=== PATIENT | female | born 1955 | race Caucasian/White ===

== ENCOUNTER 2018-03-28 21:46 | Inpatient (IN) | payer MEDICARE, BC ==
--- NOTE | 2018-03-28 22:04 | ED Physician Chart ---
ED Chief Complaint/HPI - Patient Information Date Seen:: 03/28/18 Time Seen:: 21:50 Chief Complaint:: altered mental status History of Present Illness:: Patient has been at her current assisted living facility for 5 days. She is demonstrated confusion and weight loss of unknown amount. Patient is normally nonverbal and unable to walk. Allergies:: Allergies Allergy/AdvReac Type Severity Reaction Status Date / Time Penicillins [PCN] Allergy Verified 03/28/18 21:51 Vitals:: Vital Signs - 8 hr 03/28/18 21:52 Temp 97.1 F HR 66 RR 18 BP 118/66 O2 Sat % 97 Historian:: Other (care provider) Review:: Nurse's Note Reviewed ED Review of Systems - Review of Systems General/Constitutional: No fever, Weight loss, No weakness, No diaphoresis, No edema, No loss of appetite Skin: No skin lesions, No rash, No bruising Head: No headache, No light-headedness Eyes: No loss of vision, No pain, No diplopia ENT: No earache, No nasal drainage, No sore throat, No tinnitus Neck: No neck pain, No swelling, No thyromegaly, No stiffness, No mass noted Cardio Vascular: No chest pain, No palpitations, No PND, No orthopnea, No edema Pulmonary: No SOB, No cough, No sputum, No wheezing GI: No nausea, No vomiting, No diarrhea, No pain, No melena, No hematochezia, No constipation, No hematemesis G/U: No dysuria, No frequency, No hematuria Musculoskeletal: No bone or joint pain, No back pain, No muscle pain Endocrine: No polyuria, No polydipsia Hematopoietic: No bruising, No lymphadenopathy Allergic/Immuno: No urticaria, No angioedema Neurological: No syncope, No focal symptoms, Weakness, No paresthesia, No headache, No seizure, No dizziness, Confusion, No vertigo Family Medical History - Family Member Mother History Unknown: Yes ED Physical Exam - Physical Examination General/Constitutional: Awake Other Gen/Cons comments:: Mildly chronically ill-appearing; nonverbal; yelling Head: Atraumatic Eyes: Lids, conjuctiva normal, PERRL Skin: Nl inspection, No rash, No skin lesions, No ecchymosis ENMT: External ears, nose nl, Lips, teeth, gums nl Neck: No nuchal rigidity Respiratory: Nl effort/Exclusion, Clear to Auscultation, No Wheeze/Rhonchi/Rales Cardio Vascular: RRR, No murmur, gallop, rubs GI: No tenderness/rebounding/guarding : No CVA tenderness Extremities: No tenderness or effusion Neuro/Psych: No focal deficits Misc: No paraspinal tenderness ED Labs/Radiology/EKG Results - Lab Results Results: Laboratory Results - last 24 hr 03/28/18 03/28/18 22:00 22:00 WBC 8.0 RBC 4.85 Hgb 14.9 Hct 43.7 MCV 90.1 MCH 30.6 MCHC Differential 34.0 RDW 12.6 Plt Count 262 MPV 8.5 Neutrophils % 59.5 Lymphocytes % 30.7 Monocytes % 6.3 Eosinophils % 2.6 Basophils % 0.9 Sodium 138 Potassium 4.3 Chloride 105 Carbon Dioxide 25.4 Anion Gap 11.9 BUN 16 Creatinine 0.7 Est GFR ( Amer) > 60.0 Est GFR (Non-Af Amer) > 60.0 BUN/Creatinine Ratio 22.9 Glucose 89 Calcium 9.2 Total Bilirubin 0.6 AST 20 ALT 31 Alkaline Phosphatase 68 Total Protein 6.4 Albumin 3.5 L Globulin 2.9 Albumin/Globulin Ratio 1.2 ED Septic Shock - . Is Septic Shock (SBP<90, OR Lactate>4 mmol\L) present?: No - <6hrs of presentation: Vital Signs: Vital Signs - 8 hr 03/28/18 21:52 Temp 97.1 F HR 66 RR 18 BP 118/66 O2 Sat % 97 ED Reassessment (Disposition) - Reassessment Reassessment Condition:: Improved - Diagnosis Diagnosis:: Alzheimer's disease; agitation; altered mental status - Patient Disposition Admitted to:: Med/Surg Admitting Medical Physician:: Airam Del Angel Condition at Disposition:: Stable, Improved
[2018-03-28 22:18] LABS: % BASOPHILS 0.9 % (0.0-2.0); % EOSINOPHILS 2.6 % (0.0-5.0); % LYMPHOCYTES 30.7 % (20.0-50.0); % MONOCYTES 6.3 % (2.0-10.0); % NEUTROPHILS 59.5 % (40.0-80.0); BASOPHILE ABSOLUTE 0.1 Th/cumm (0-0.2); EOSINOPHILE ABSOLUTE 0.2 Th/cmm (0.1-0.4); HEMATOCRIT 43.7 % (41.0-60); HEMOGLOBIN 14.9 gm/dL (12-16); LYMPHOCYTE ABSOLUTE 2.5 Th/cmm (1.5-3.0); MEAN CELL VOLUME 90.1 fl (81-100); MEAN CORPUSCULAR HEMOGLOBIN 30.6 pg (27.0-31.0); MEAN PLATELET VOLUME 8.5 fl; MONOCYTE ABSOLUTE 0.5 Th/cmm (0.3-1.0); NEUTROPHILE ABSOLUTE 4.7 Th/cmm (1.8-8.0); PLATELET COUNT 262 Th/cmm (150-400); RED BLOOD COUNT 4.85 Mil/cmm (3.80-5.10); RED CELL DISTRIBUTION WIDTH 12.6 % (11.5-20.0)
[2018-03-28 22:44] LABS: ALB/GLOB RATIO 1.2 (1.0-1.8); ALBUMIN 3.5 gm/dL (3.7-5.3); ALKALINE PHOSPHATASE 68 U/L (34-104); ANION GAP 11.9 (7.0-16.0); BILIRUBIN,TOTAL 0.6 mg/dL (0.3-1.0); BUN - UREA NITROGEN 16 mg/dL (7-25); CALCIUM SERUM 9.2 mg/dL (8.6-10.3); CARBON DIOXIDE 25.4 mEq/L (21.0-31.0); CHLORIDE 105 mEq/L (98-107); CREATININE - SERUM 0.7 mg/dL (0.6-1.2); GFR AFRICAN-AMERICAN > 60.0 ml/min (>90); GFR NON AFRICAN-AMERICAN > 60.0 ml/min; GLUCOSE 89 mg/dL (70-105); POTASSIUM SERUM 4.3 mEq/L (3.5-5.1); SGOT 20 U/L (13-39); SGPT/ALT 31 U/L (7-52); SODIUM SERUM 138 mEq/L (136-145); TOTAL PROTEIN,SERUM 6.4 gm/dL (6.0-8.3)
[2018-03-29] MEDS: D5-0.45NS 1,000 ML IV SCH ×2 (01:00→20:59)
[2018-03-29 11:52] LABS: % BASOPHILS 0.1 % (0.0-2.0); % LYMPHOCYTES 33.9 % (20.0-50.0); EOSINOPHILE ABSOLUTE 0.2 Th/cmm (0.1-0.4); MEAN CELL VOLUME 90.9 fl (81-100); MEAN CORPUSCULAR HEMOGLOBIN 30.7 pg (27.0-31.0); MEAN CORPUSCULAR HGB CONC 33.8 pg (28.0-36.0); MEAN PLATELET VOLUME 8.6 fl; MONOCYTE ABSOLUTE 0.5 Th/cmm (0.3-1.0); NEUTROPHILE ABSOLUTE 3.1 Th/cmm (1.8-8.0); PLATELET COUNT 226 Th/cmm (150-400); RED BLOOD COUNT 4.24 Mil/cmm (3.80-5.10); RED CELL DISTRIBUTION WIDTH 12.2 % (11.5-20.0)
[2018-03-29 11:54] LABS: ALB/GLOB RATIO 1.1 (1.0-1.8); ALBUMIN 3.3 gm/dL (3.7-5.3); ALKALINE PHOSPHATASE 58 U/L (34-104); ANION GAP 10.8 (7.0-16.0); BILIRUBIN,TOTAL 0.8 mg/dL (0.3-1.0); BUN - UREA NITROGEN 12 mg/dL (7-25); CALCIUM SERUM 8.4 mg/dL (8.6-10.3); CHLORIDE 104 mEq/L (98-107); CHOLESTEROL 168 mg/dL (<200); CREATININE - SERUM 0.7 mg/dL (0.6-1.2); GFR AFRICAN-AMERICAN > 60.0 ml/min (>90); GFR NON AFRICAN-AMERICAN > 60.0 ml/min; HDL -HIGH DENSITY LIPOPROTEIN 31 mg/dL (23-92); MAGNESIUM 2.3 mg/dL (1.9-2.7); POTASSIUM SERUM 3.8 mEq/L (3.5-5.1); SGOT 17 U/L (13-39); SGPT/ALT 25 U/L (7-52); SODIUM SERUM 135 mEq/L (136-145); TOTAL PROTEIN,SERUM 6.2 gm/dL (6.0-8.3); TRIGLYCERIDES 88 mg/dL (<150)
[2018-03-29 11:55] LABS: HEMATOCRIT 38.6 % (41.0-60); WHITE BLOOD COUNT 5.8 Th/cmm (4.8-10.8)
[2018-03-29 12:03] LABS: GLUCOSE 363 mg/dL (70-105)
[2018-03-29] MEDS: POLYETHYLENE GLYCOL 3350 17 GM PACK PO SCH (16:35)
--- NOTE | 2018-03-29 16:56 | History & Physical ---
ADMIT DATE: 03/29/2018 CHIEF COMPLAINT: Altered mental status. HISTORY OF PRESENT ILLNESS: A 62-year-old female who is a resident of an assisted living. The patient has been more confused. For this reason, the patient is admitted to the med-surg unit. PAST MEDICAL HISTORY: Degenerative psychosis. PAST SURGICAL HISTORY: Unknown. ALLERGIES: PENICILLIN. SOCIAL HISTORY: The patient is a resident of an assisted living. REVIEW OF SYSTEMS: Unable to obtain, the patient is nonverbal at this time. PHYSICAL EXAMINATION: GENERAL: Elderly female, in no apparent distress. VITAL SIGNS: Temperature 97.2, heart rate 50, blood pressure 116/64, respiratory rate 17, O2 98%. HEENT: Head; normocephalic and atraumatic. NECK: Supple. No mass. LUNGS: Clear bilaterally. HEART: Regular rate and rhythm. ABDOMEN: Soft, nontender. LABORATORY DATA: WBC 5.8, H and H 13.0/38.6 and platelet of 226. Sodium 135, potassium 3.8, chloride 104, BUN 12 and creatinine 0.7. ASSESSMENT: Altered mental status, Alzheimer disease and agitation. PLAN: We will admit the patient to the med/surg unit. We will keep the patient on IV fluids for hydration. We will get CT of the abdomen and pelvis and also a CT of the head without contrast. We will get GI consultation and Psych consult as well. Continue to follow this patient. JOB# [id number]
--- NOTE | 2018-03-29 17:41 | Consultation ---
DATE OF CONSULTATION: 03/29/2018 IDENTIFYING INFORMATION: The patient is a 62-year-old female. HISTORY OF PRESENT ILLNESS: The patient was admitted because of altered level of consciousness and I was asked to do a consult on her. The patient herself was a poor historian. She was yelling and screaming throughout trying talk to her. The patients in the room were complaining that she could not sleep. She ____ all night. The patient came from assisted living facility, has been there for 5 days. She has been confused. She has been losing weight. She is normally nonverbal and unable to walk, so basically the patient really cannot express herself, very agitated, hard to redirect. I am not sure if she understand what I am asking her. PAST PSYCHIATRIC HISTORY: Unobtainable. MEDICAL HISTORY: The patient with a history of Alzheimer and agitation. MEDICATIONS: The patient has been on lorazepam 1 mg every 6 hours as needed. ALLERGIES: SHE IS ALLERGIC TO PENICILLIN. FAMILY AND SOCIAL HISTORY: Unobtainable. She came from [facility]. MENTAL STATUS EXAMINATION: The patient is yelling and screaming, nonverbal, unable to participate in meaningful conversation, not sleeping, not eating. Unable to do a formal mental status exam on her because of her agitation, and her inability to talk, very hard to redirect. I am not sure if she even understand. She also diagnosed with dementia. Obviously, her long and short term memory is poor. Her insight and judgment is impaired. IMPRESSION: AXIS I: Depression, not otherwise specified; psychosis, not otherwise specified. MEDICAL DIAGNOSES: Deferred to the medical doctor. I would recommend to add Remeron as that may help her with sleep and agitation. Medication may need to be adjusted. The patient may need to go to [facility] when medically clear. Thank you very much for allowing me to participate in the care of this most interesting lady. [facility]# [id number]
--- NOTE | 2018-03-29 17:49 | Consultation ---
DATE OF CONSULTATION: 03/29/2018 INPATIENT GASTROINTESTINAL CONSULTATION REFERRING PHYSICIAN: Dr. Del Agnel. REASON FOR CONSULTATION: Weight loss. HISTORY OF PRESENT ILLNESS: This is a 62-year-old female from a skilled facility, who was brought into the hospital with altered mental status. The patient seems somewhat confused and is not a good historian. We are asked to see the patient for alleged weight loss of an unknown amount. PAST MEDICAL HISTORY: Alzheimer's dementia. PAST SURGICAL HISTORY: Unknown to abdomen. FAMILY HISTORY: Noncontributory. SOCIAL HISTORY: Resident of skilled facility. ALLERGIES: PENICILLIN. CURRENT MEDICATIONS: Ativan and IV fluids. REVIEW OF SYSTEMS: Unobtainable. PHYSICAL EXAMINATION: VITAL SIGNS: Temperature 96.8, breathing 18, pulse of 54, blood pressure 113/61, and satting 100%. GENERAL: In no apparent distress. EYES: Anicteric. Normal conjunctivae. HEENT: Normocephalic, atraumatic. Moist mucous membranes. NECK: Soft and supple. CHEST: Clear. No effort. CARDIOVASCULAR: Regular rate and rhythm. ABDOMEN: Soft, nontender, nondistended. SKIN: Warm, dry. EXTREMITIES: Reveal no cyanosis. PSYCHOLOGICAL: Awake. LABORATORY DATA: Show white count 8, hemoglobin 14.9, and platelets of 262. Creatinine 0.7, total bilirubin 0.6, AST 20, ALT 31, and alkaline phosphatase 68. IMPRESSION: This is a 62-year-old female admitted with altered mental status, could be underlying psychiatric disorder, for which I would recommend a primary and hospitalist, get Psychiatry to evaluate this patient and other workup as necessary, perhaps Neurology. The patient is not having any GI symptoms, specifically abdominal pain, GI bleeding, change in bowel habits at this point, although she is a poor historian. We are asked to see her for weight loss and is quite difficult to tell how much weight she has lost. A CT abdomen and pelvis can be an overview image of the abdomen. Further recommendations may require other specialists to evaluate. We will defer to hospitalist to make that decision. PLAN: 1. Check CT abdomen and pelvis. 2. Consider Psych and Neuro evaluation per hospitalist. 3. Continue supportive care. Thank you for allowing me to participate. Please call me if any questions. JOB# [id number]
--- NOTE | 2018-03-30 08:05 | GI Progress Note ---
Subjective - Review of Systems Subjective: NO EVENTS Objective - Results Result Diagrams: 03/29/18 11:26 03/29/18 11:26 Recent Labs: Laboratory Last Values WBC 5.8 Th/cmm (4.8-10.8) D 03/29/18 11:26 RBC 4.24 Mil/cmm (3.80-5.10) 03/29/18 11:26 Hgb 13.0 gm/dL (12-16) 03/29/18 11:26 Hct 38.6 % (41.0-60) L D 03/29/18 11:26 MCV 90.9 fl (81-100) 03/29/18 11:26 MCH 30.7 pg (27.0-31.0) 03/29/18 11:26 MCHC Differential 33.8 pg (28.0-36.0) 03/29/18 11:26 RDW 12.2 % (11.5-20.0) 03/29/18 11:26 Plt Count 226 Th/cmm (150-400) 03/29/18 11:26 MPV 8.6 fl 03/29/18 11:26 Neutrophils % 54.0 % (40.0-80.0) 03/29/18 11:26 Lymphocytes % 33.9 % (20.0-50.0) 03/29/18 11:26 Monocytes % 9.0 % (2.0-10.0) 03/29/18 11:26 Eosinophils % 3.0 % (0.0-5.0) 03/29/18 11:26 Basophils % 0.1 % (0.0-2.0) 03/29/18 11:26 Sodium 135 mEq/L (136-145) L 03/29/18 11:26 Potassium 3.8 mEq/L (3.5-5.1) 03/29/18 11:26 Chloride 104 mEq/L (98-107) 03/29/18 11:26 Carbon Dioxide 24.0 mEq/L (21.0-31.0) 03/29/18 11:26 Anion Gap 10.8 (7.0-16.0) 03/29/18 11:26 BUN 12 mg/dL (7-25) 03/29/18 11:26 Creatinine 0.7 mg/dL (0.6-1.2) 03/29/18 11:26 Est GFR ( Amer) > 60.0 ml/min (>90) 03/29/18 11:26 Est GFR (Non-Af Amer) > 60.0 ml/min 03/29/18 11:26 BUN/Creatinine Ratio 17.1 03/29/18 11:26 Glucose 363 mg/dL (70-105) H D 03/29/18 11:26 Calcium 8.4 mg/dL (8.6-10.3) L 03/29/18 11:26 Magnesium 2.3 mg/dL (1.9-2.7) 03/29/18 11:26 Total Bilirubin 0.8 mg/dL (0.3-1.0) 03/29/18 11:26 AST 17 U/L (13-39) 03/29/18 11:26 ALT 25 U/L (7-52) 03/29/18 11:26 Alkaline Phosphatase 58 U/L (34-104) 03/29/18 11:26 Total Protein 6.2 gm/dL (6.0-8.3) 03/29/18 11:26 Albumin 3.3 gm/dL (3.7-5.3) L 03/29/18 11:26 Globulin 2.9 gm/dL 03/29/18 11:26 Albumin/Globulin Ratio 1.1 (1.0-1.8) 03/29/18 11:26 Triglycerides 88 mg/dL (<150) 03/29/18 11:26 Cholesterol 168 mg/dL (<200) 03/29/18 11:26 LDL Cholesterol Direct 120 mg/dL (75-193) 03/29/18 11:26 HDL Cholesterol 31 mg/dL (23-92) 03/29/18 11:26 - Physical Exam Vitals and I&O: Vital Signs Temp 95.1 F 03/30/18 07:59 Pulse 52 03/30/18 07:59 Resp 17 03/30/18 07:59 BP 133/65 03/30/18 07:59 Pulse Ox 100 03/30/18 07:59 Intake & Output 03/29/18 03/30/18 03/30/18 18:59 06:59 18:59 Intake Total 500 999.167 Output Total 2 Balance 498 999.167 Weight (lbs) 48.988 kg 49.895 kg Intake: Intake, IV Amount 999.167 D5-0.45NS 1,000 ml @ 50 999.167 mls/hr IV .Q20H [facility] Rx#: [id number] Oral 500 Output: Urine 2 Other: # Bowel Movements 0 Weight Source Bedscale Bedscale Active Medications: Current Medications Diazepam (Valium) 5 mg PO BID [facility]; Protocol Stop: 05/28/18 16:59 Dextrose/Sodium Chloride (D5-0.45ns) 1,000 mls @ 50 mls/hr IV .Q20H [facility] Stop: 05/28/18 00:00 Last Admin: 03/29/18 20:59 Dose: 50 mls/hr Lorazepam (Ativan) 1 mg IVP Q6HR PRN; Protocol PRN Reason: Agitation Stop: 05/28/18 00:00 Last Admin: 03/29/18 20:52 Dose: 1 mg Mirtazapine (Remeron) 7.5 mg PO HS [facility]; Protocol Stop: 05/28/18 12:15 Last Admin: 03/29/18 13:56 Dose: 7.5 mg Ondansetron HCl (Zofran Odt) 4 mg PO Q6HR PRN PRN Reason: Nausea / Vomiting Stop: 05/28/18 16:04 Polyethylene Glycol (Miralax) 17 gm PO BID [facility] Stop: 05/28/18 16:59 Last Admin: 03/29/18 16:35 Dose: 17 gm Quetiapine Fumarate (Seroquel) 25 mg PO Q6H PRN; Protocol PRN Reason: Agitation Stop: 05/28/18 16:04 Quetiapine Fumarate (Seroquel) 50 mg PO BID [facility]; Protocol Stop: 05/28/18 16:59 Assessment/Plan - Assessment Assessment: 62 YO FEMALE WITH ALLEGED WEIGHT LOSS UNCLEAR ETIOLOGY OR AMOUNT 1.AWAIT CT SCAN 2.CONT SUPP CARE 3.DEFER OTHER MANAGEMENT TO HOSPITALIST
[2018-03-30] MEDS: POLYETHYLENE GLYCOL 3350 17 GM PACK PO SCH ×2 (09:25→17:01)
--- NOTE | 2018-03-30 10:09 | Diagnostic Imaging Report ---
Head CT without intravenous contrast Indication: Altered level of consciousness Comparison: None Technique: Axial images were obtained from the vertex to the skull base without IV contrast. Coronal reconstructions were made. Total DLP: 1219, [id number] FINDINGS: Exam is severely limited as patient was uncooperative despite multiple attempts. No gross hemorrhage is identified. Atrophy is noted. Diffuse White matter disease is noted. The ventricles and basal cisterns are patent. No mass effect or midline shift. Assessment for skull fracture was limited on this examination. IMPRESSION: Severely limited examination as patient was uncooperative despite multiple attempts. No gross hemorrhage identified based on images provided. If necessary short-term repeat exam may be obtained. Diffuse supratentorial white matter disease which is nonspecific and may be due to chronic microvessel ischemia. Atrophy.
--- NOTE | 2018-03-30 10:13 | Diagnostic Imaging Report ---
CT abdomen and pelvis without intravenous contrast Indication: Abdominal pain, weight loss Comparison: None, Technique: Axial images were obtained from the lung bases to the bilateral proximal femurs without IV contrast. Coronal reconstructions were made. total DLP: 812, [id number] FINDINGS: Exam is markedly limited due to motion as patient was uncooperative. Hypoventilatory and atelectatic lung changes are noted. Assessment of the solid organs is limited due to lack of IV contrast. No evidence of focal hepatic or splenic lesions. The patient is status post cholecystectomy. Limited assessment of the pancreas demonstrates no obvious focal lesions. No focal adrenal lesions. No evidence of hydronephrosis or focal renal lesions. There is marked distal fecal impaction and with mass effect upon the uterus and urinary bladder. Additional copious stool and generalized gas-filled loops of bowel are noted. Appendix is not well-visualized. No free fluid or free air. Limited assessment of osseous structures demonstrates degenerative changes. Mild atherosclerosis is noted. No obvious mesenteric or retroperitoneal or lymphadenopathy. IMPRESSION: Markedly limited examination as patient was uncooperative. Exam is also limited due to lack of IV and oral contrast. Marked distal fecal impaction. Copious stool and gas-filled loops of bowel are also noted which may be due to constipation and mild ileus. No obvious mesenteric or retroperitoneal lymphadenopathy. However, assessment was limited on this examination Evidence of prior cholecystectomy. Mild atherosclerosis.
[2018-03-30 14:59] LABS: URINE SOURCE CATH
[2018-03-30 15:19] LABS: URINE BILIRUBIN NEGATIVE (NEGATIVE); URINE BLOOD NEGATIVE (NEGATIVE); URINE CLARITY CLEAR (CLEAR); URINE COLOR YELLOW; URINE GLUCOSE (UA) NEGATIVE (NEGATIVE); URINE KETONE NEGATIVE (NEGATIVE); URINE LEUKOCYTE ESTERASE NEGATIVE (NEGATIVE); URINE MICROSCOPIC INDICATED? YES; URINE NITRATE NEGATIVE (NEGATIVE); URINE PROTEIN NEGATIVE (NEGATIVE); URINE UROBILINOGEN 0.2 E.U./dL (0.2 - 1.0)
[2018-03-30 15:21] LABS: URINE BACTERIA OCCASIONAL /hpf (NONE SEEN); URINE EPITHELIAL CELLS FEW /lpf (FEW); URINE RBC 0-2 /hpf (0-5); URINE WBC 0-2 /hpf (0-5)
[2018-03-30] MEDS: D5-0.45NS 1,000 ML IV SCH (17:06)
--- NOTE | 2018-03-30 21:15 | Progress Notes ---
DATE: 03/30/2018 SUBJECTIVE: The patient was seen in her room. The patient is asleep, but easily arousable. The patient is a poor historian due to medical condition, otherwise the patient appears to be in no acute distress. OBJECTIVE: VITAL SIGNS: Temperature 97.1, heart rate of 52, respirations of 18, blood pressure 138/65, 100% on room air. HEENT: Head is atraumatic and normocephalic. Eyes: Bilateral conjunctivae are clear. Bilateral pupils are equally round and reactive. NECK: Supple. No JVD. CARDIOVASCULAR: S1 and S2 without murmur. PULMONARY: Clear to auscultation. GASTROINTESTINAL: Soft and nontender without guarding. Positive bowel sounds. MUSCULOSKELETAL: No clubbing. No cyanosis noted. ASSESSMENT: 1. Dementia. 2. Osteoarthritis. PLAN: We will keep the patient inpatient to Med/Surg unit. We are still pending for consults to see the patient. Treatment plans were discussed with the patient's nurse. Treatment plans were discussed with Dr. Del Angel. JOB# [id number]
--- NOTE | 2018-03-31 08:12 | GI Progress Note ---
Subjective - Review of Systems Subjective: NO EVENTS EATING BREAKFAST Objective - Results Result Diagrams: 03/29/18 11:26 03/29/18 11:26 Recent Labs: Laboratory Last Values WBC 5.8 Th/cmm (4.8-10.8) D 03/29/18 11:26 RBC 4.24 Mil/cmm (3.80-5.10) 03/29/18 11:26 Hgb 13.0 gm/dL (12-16) 03/29/18 11:26 Hct 38.6 % (41.0-60) L D 03/29/18 11:26 MCV 90.9 fl (81-100) 03/29/18 11:26 MCH 30.7 pg (27.0-31.0) 03/29/18 11:26 MCHC Differential 33.8 pg (28.0-36.0) 03/29/18 11:26 RDW 12.2 % (11.5-20.0) 03/29/18 11:26 Plt Count 226 Th/cmm (150-400) 03/29/18 11:26 MPV 8.6 fl 03/29/18 11:26 Neutrophils % 54.0 % (40.0-80.0) 03/29/18 11:26 Lymphocytes % 33.9 % (20.0-50.0) 03/29/18 11:26 Monocytes % 9.0 % (2.0-10.0) 03/29/18 11:26 Eosinophils % 3.0 % (0.0-5.0) 03/29/18 11:26 Basophils % 0.1 % (0.0-2.0) 03/29/18 11:26 Sodium 135 mEq/L (136-145) L 03/29/18 11:26 Potassium 3.8 mEq/L (3.5-5.1) 03/29/18 11:26 Chloride 104 mEq/L (98-107) 03/29/18 11:26 Carbon Dioxide 24.0 mEq/L (21.0-31.0) 03/29/18 11:26 Anion Gap 10.8 (7.0-16.0) 03/29/18 11:26 BUN 12 mg/dL (7-25) 03/29/18 11:26 Creatinine 0.7 mg/dL (0.6-1.2) 03/29/18 11:26 Est GFR ( Amer) > 60.0 ml/min (>90) 03/29/18 11:26 Est GFR (Non-Af Amer) > 60.0 ml/min 03/29/18 11:26 BUN/Creatinine Ratio 17.1 03/29/18 11:26 Glucose 363 mg/dL (70-105) H D 03/29/18 11:26 Calcium 8.4 mg/dL (8.6-10.3) L 03/29/18 11:26 Magnesium 2.3 mg/dL (1.9-2.7) 03/29/18 11:26 Total Bilirubin 0.8 mg/dL (0.3-1.0) 03/29/18 11:26 AST 17 U/L (13-39) 03/29/18 11:26 ALT 25 U/L (7-52) 03/29/18 11:26 Alkaline Phosphatase 58 U/L (34-104) 03/29/18 11:26 Total Protein 6.2 gm/dL (6.0-8.3) 03/29/18 11:26 Albumin 3.3 gm/dL (3.7-5.3) L 03/29/18 11:26 Globulin 2.9 gm/dL 03/29/18 11:26 Albumin/Globulin Ratio 1.1 (1.0-1.8) 03/29/18 11:26 Triglycerides 88 mg/dL (<150) 03/29/18 11:26 Cholesterol 168 mg/dL (<200) 03/29/18 11:26 LDL Cholesterol Direct 120 mg/dL (75-193) 03/29/18 11:26 HDL Cholesterol 31 mg/dL (23-92) 03/29/18 11:26 Urine Source CATH 03/30/18 10:05 Urine Color YELLOW 03/30/18 10:05 Urine Clarity CLEAR (CLEAR) 03/30/18 10:05 Urine pH 6.0 (4.6 - 8.0) 03/30/18 10:05 Ur Specific Simon 1.015 (1.005-1.030) 03/30/18 10:05 Urine Protein NEGATIVE mg/dL (NEGATIVE) 03/30/18 10:05 Urine Glucose (UA) NEGATIVE mg/dL (NEGATIVE) 03/30/18 10:05 Urine Ketones NEGATIVE mg/dL (NEGATIVE) 03/30/18 10:05 Urine Blood NEGATIVE (NEGATIVE) 03/30/18 10:05 Urine Nitrate NEGATIVE (NEGATIVE) 03/30/18 10:05 Urine Bilirubin NEGATIVE (NEGATIVE) 03/30/18 10:05 Urine Urobilinogen 0.2 E.U./dL (0.2 - 1.0) 03/30/18 10:05 Ur Leukocyte Esterase NEGATIVE (NEGATIVE) 03/30/18 10:05 Urine RBC 0-2 /hpf (0-5) 03/30/18 10:05 Urine WBC 0-2 /hpf (0-5) 03/30/18 10:05 Ur Epithelial Cells FEW /lpf (FEW) 03/30/18 10:05 Urine Bacteria OCCASIONAL /hpf (NONE SEEN) 03/30/18 10:05 - Physical Exam Vitals and I&O: Vital Signs Temp 97.6 F 03/31/18 04:00 Pulse 61 03/31/18 04:00 Resp 20 03/31/18 04:00 BP 112/68 03/31/18 04:00 Pulse Ox 98 03/31/18 04:00 Intake & Output 03/30/18 03/31/18 03/31/18 18:59 06:59 18:59 Intake Total 1900 120 Output Total 3 Balance 1900 117 Weight (lbs) 49.895 kg 49.016 kg Intake: Intake, IV Amount 1000 D5-0.45NS 1,000 ml @ 50 1000 mls/hr IV .Q20H [facility] Rx#: [id number] Oral 900 120 Output: Urine/Stool Mix 3 Other: # Voids 3 # Bowel Movements 0 Weight Source Bedscale Bedscale Active Medications: Current Medications Diazepam (Valium) 5 mg PO BID [facility]; Protocol Stop: 05/28/18 16:59 Last Admin: 03/31/18 07:53 Dose: 5 mg Dextrose/Sodium Chloride (D5-0.45ns) 1,000 mls @ 50 mls/hr IV .Q20H [facility] Stop: 05/28/18 00:00 Last Admin: 03/30/18 17:06 Dose: 50 mls/hr Lorazepam (Ativan) 1 mg IVP Q6HR PRN; Protocol PRN Reason: Agitation Stop: 05/28/18 00:00 Last Admin: 03/31/18 07:53 Dose: 1 mg Mirtazapine (Remeron) 7.5 mg PO HS [facility]; Protocol Stop: 05/28/18 12:15 Last Admin: 03/30/18 21:27 Dose: 7.5 mg Ondansetron HCl (Zofran Odt) 4 mg PO Q6HR PRN PRN Reason: Nausea / Vomiting Stop: 05/28/18 16:04 Polyethylene Glycol (Miralax) 17 gm PO BID [facility] Stop: 05/28/18 16:59 Last Admin: 03/30/18 17:01 Dose: 17 gm Quetiapine Fumarate (Seroquel) 25 mg PO Q6H PRN; Protocol PRN Reason: Agitation Stop: 05/28/18 16:04 Quetiapine Fumarate (Seroquel) 50 mg PO BID [facility]; Protocol Stop: 05/28/18 16:59 Last Admin: 03/31/18 07:53 Dose: 50 mg Assessment/Plan - Assessment Assessment: 62 YO FEMALE WITH ALLEGED WEIGHT LOSS UNCLEAR ETIOLOGY OR AMOUNT LFTS NORMAL CT ABD PELVIS SHOWED CONSTIPATION AND PATRICIO CHANGES 1.LAXATIVES 2.CONT SUPP CARE 3.DEFER OTHER MANAGEMENT TO HOSPITALIST
[2018-03-31] MEDS ORDERED: Magnesium Hydroxide (MOM) 30 mL UDC PO PRN (08:13)
--- NOTE | 2018-03-31 11:28 | General Progress Note ---
Subjective - Review of Systems Events since last encounter: in no distres doing well Objective - Results Result Diagrams: 03/29/18 11:26 03/29/18 11:26 Recent Labs: Laboratory Last Values WBC 5.8 Th/cmm (4.8-10.8) D 03/29/18 11:26 RBC 4.24 Mil/cmm (3.80-5.10) 03/29/18 11:26 Hgb 13.0 gm/dL (12-16) 03/29/18 11:26 Hct 38.6 % (41.0-60) L D 03/29/18 11:26 MCV 90.9 fl (81-100) 03/29/18 11:26 MCH 30.7 pg (27.0-31.0) 03/29/18 11:26 MCHC Differential 33.8 pg (28.0-36.0) 03/29/18 11:26 RDW 12.2 % (11.5-20.0) 03/29/18 11:26 Plt Count 226 Th/cmm (150-400) 03/29/18 11:26 MPV 8.6 fl 03/29/18 11:26 Neutrophils % 54.0 % (40.0-80.0) 03/29/18 11:26 Lymphocytes % 33.9 % (20.0-50.0) 03/29/18 11:26 Monocytes % 9.0 % (2.0-10.0) 03/29/18 11:26 Eosinophils % 3.0 % (0.0-5.0) 03/29/18 11:26 Basophils % 0.1 % (0.0-2.0) 03/29/18 11:26 Sodium 135 mEq/L (136-145) L 03/29/18 11:26 Potassium 3.8 mEq/L (3.5-5.1) 03/29/18 11:26 Chloride 104 mEq/L (98-107) 03/29/18 11:26 Carbon Dioxide 24.0 mEq/L (21.0-31.0) 03/29/18 11:26 Anion Gap 10.8 (7.0-16.0) 03/29/18 11:26 BUN 12 mg/dL (7-25) 03/29/18 11:26 Creatinine 0.7 mg/dL (0.6-1.2) 03/29/18 11:26 Est GFR ( Amer) > 60.0 ml/min (>90) 03/29/18 11:26 Est GFR (Non-Af Amer) > 60.0 ml/min 03/29/18 11:26 BUN/Creatinine Ratio 17.1 03/29/18 11:26 Glucose 363 mg/dL (70-105) H D 03/29/18 11:26 Calcium 8.4 mg/dL (8.6-10.3) L 03/29/18 11:26 Magnesium 2.3 mg/dL (1.9-2.7) 03/29/18 11:26 Total Bilirubin 0.8 mg/dL (0.3-1.0) 03/29/18 11:26 AST 17 U/L (13-39) 03/29/18 11:26 ALT 25 U/L (7-52) 03/29/18 11:26 Alkaline Phosphatase 58 U/L (34-104) 03/29/18 11:26 Total Protein 6.2 gm/dL (6.0-8.3) 03/29/18 11:26 Albumin 3.3 gm/dL (3.7-5.3) L 03/29/18 11:26 Globulin 2.9 gm/dL 03/29/18 11:26 Albumin/Globulin Ratio 1.1 (1.0-1.8) 03/29/18 11:26 Triglycerides 88 mg/dL (<150) 03/29/18 11:26 Cholesterol 168 mg/dL (<200) 03/29/18 11:26 LDL Cholesterol Direct 120 mg/dL (75-193) 03/29/18 11:26 HDL Cholesterol 31 mg/dL (23-92) 03/29/18 11:26 Urine Source CATH 03/30/18 10:05 Urine Color YELLOW 03/30/18 10:05 Urine Clarity CLEAR (CLEAR) 03/30/18 10:05 Urine pH 6.0 (4.6 - 8.0) 03/30/18 10:05 Ur Specific [place] 1.015 (1.005-1.030) 03/30/18 10:05 Urine Protein NEGATIVE mg/dL (NEGATIVE) 03/30/18 10:05 Urine Glucose (UA) NEGATIVE mg/dL (NEGATIVE) 03/30/18 10:05 Urine Ketones NEGATIVE mg/dL (NEGATIVE) 03/30/18 10:05 Urine Blood NEGATIVE (NEGATIVE) 03/30/18 10:05 Urine Nitrate NEGATIVE (NEGATIVE) 03/30/18 10:05 Urine Bilirubin NEGATIVE (NEGATIVE) 03/30/18 10:05 Urine Urobilinogen 0.2 E.U./dL (0.2 - 1.0) 03/30/18 10:05 Ur Leukocyte Esterase NEGATIVE (NEGATIVE) 03/30/18 10:05 Urine RBC 0-2 /hpf (0-5) 03/30/18 10:05 Urine WBC 0-2 /hpf (0-5) 03/30/18 10:05 Ur Epithelial Cells FEW /lpf (FEW) 03/30/18 10:05 Urine Bacteria OCCASIONAL /hpf (NONE SEEN) 03/30/18 10:05 - Physical Exam Vitals and I&O: Vital Signs Temp 97.2 F 03/31/18 09:01 Pulse 76 03/31/18 09:01 Resp 18 03/31/18 09:01 BP 90/51 03/31/18 09:01 Pulse Ox 99 03/31/18 09:01 Intake & Output 03/30/18 03/31/18 03/31/18 18:59 06:59 18:59 Intake Total 1900 120 Output Total 3 Balance 1900 117 Weight (lbs) 49.895 kg 49.016 kg Intake: Intake, IV Amount 1000 D5-0.45NS 1,000 ml @ 50 1000 mls/hr IV .Q20H [facility] Rx#: [id number] Oral 900 120 Output: Urine/Stool Mix 3 Other: # Voids 3 # Bowel Movements 0 Weight Source Bedscale Bedscale Active Medications: Current Medications Diazepam (Valium) 5 mg PO TID [facility]; Protocol Stop: 05/30/18 13:59 Docusate Sodium (Colace) 100 mg PO BID [facility] Stop: 05/30/18 08:59 Dextrose/Sodium Chloride (D5-0.45ns) 1,000 mls @ 50 mls/hr IV .Q20H [facility] Stop: 05/28/18 00:00 Last Admin: 03/30/18 17:06 Dose: 50 mls/hr Magnesium Hydroxide (Milk Of Magnesia) 30 ml PO HS PRN PRN Reason: Constipation Stop: 05/30/18 08:12 Mirtazapine (Remeron) 7.5 mg PO HS [facility]; Protocol Stop: 05/28/18 12:15 Last Admin: 03/30/18 21:27 Dose: 7.5 mg Ondansetron HCl (Zofran Odt) 4 mg PO Q6HR PRN PRN Reason: Nausea / Vomiting Stop: 05/28/18 16:04 Polyethylene Glycol (Miralax) 17 gm PO BID [facility] Stop: 05/28/18 16:59 Last Admin: 03/30/18 17:01 Dose: 17 gm Quetiapine Fumarate (Seroquel) 25 mg PO Q6H PRN; Protocol PRN Reason: Agitation Stop: 05/28/18 16:04 Quetiapine Fumarate (Seroquel) 50 mg PO BID [facility]; Protocol Stop: 05/28/18 16:59 Last Admin: 03/31/18 08:25 Dose: 50 mg
[2018-03-31] MEDS: POLYETHYLENE GLYCOL 3350 17 GM PACK PO SCH ×2 (11:44→17:07)
[2018-03-31] MEDS: D5-0.45NS 1,000 ML IV SCH (17:08)
[2018-04-01] MEDS: POLYETHYLENE GLYCOL 3350 17 GM PACK PO SCH ×2 (08:10→17:11)
[2018-04-01] MEDS: D5-0.45NS 1,000 ML IV SCH (13:24)
--- NOTE | 2018-04-01 15:30 | General Progress Note ---
Subjective - Review of Systems Events since last encounter: doing well in no acute distress Objective - Results Result Diagrams: 03/29/18 11:26 03/29/18 11:26 Recent Labs: Laboratory Last Values WBC 5.8 Th/cmm (4.8-10.8) D 03/29/18 11:26 RBC 4.24 Mil/cmm (3.80-5.10) 03/29/18 11:26 Hgb 13.0 gm/dL (12-16) 03/29/18 11:26 Hct 38.6 % (41.0-60) L D 03/29/18 11:26 MCV 90.9 fl (81-100) 03/29/18 11:26 MCH 30.7 pg (27.0-31.0) 03/29/18 11:26 MCHC Differential 33.8 pg (28.0-36.0) 03/29/18 11:26 RDW 12.2 % (11.5-20.0) 03/29/18 11:26 Plt Count 226 Th/cmm (150-400) 03/29/18 11:26 MPV 8.6 fl 03/29/18 11:26 Neutrophils % 54.0 % (40.0-80.0) 03/29/18 11:26 Lymphocytes % 33.9 % (20.0-50.0) 03/29/18 11:26 Monocytes % 9.0 % (2.0-10.0) 03/29/18 11:26 Eosinophils % 3.0 % (0.0-5.0) 03/29/18 11:26 Basophils % 0.1 % (0.0-2.0) 03/29/18 11:26 Sodium 135 mEq/L (136-145) L 03/29/18 11:26 Potassium 3.8 mEq/L (3.5-5.1) 03/29/18 11:26 Chloride 104 mEq/L (98-107) 03/29/18 11:26 Carbon Dioxide 24.0 mEq/L (21.0-31.0) 03/29/18 11:26 Anion Gap 10.8 (7.0-16.0) 03/29/18 11:26 BUN 12 mg/dL (7-25) 03/29/18 11:26 Creatinine 0.7 mg/dL (0.6-1.2) 03/29/18 11:26 Est GFR ( Amer) > 60.0 ml/min (>90) 03/29/18 11:26 Est GFR (Non-Af Amer) > 60.0 ml/min 03/29/18 11:26 BUN/Creatinine Ratio 17.1 03/29/18 11:26 Glucose 363 mg/dL (70-105) H D 03/29/18 11:26 POC Glucose 98 MG/DL (70 - 105) 04/01/18 07:56 Calcium 8.4 mg/dL (8.6-10.3) L 03/29/18 11:26 Magnesium 2.3 mg/dL (1.9-2.7) 03/29/18 11:26 Total Bilirubin 0.8 mg/dL (0.3-1.0) 03/29/18 11:26 AST 17 U/L (13-39) 03/29/18 11:26 ALT 25 U/L (7-52) 03/29/18 11:26 Alkaline Phosphatase 58 U/L (34-104) 03/29/18 11:26 Total Protein 6.2 gm/dL (6.0-8.3) 03/29/18 11:26 Albumin 3.3 gm/dL (3.7-5.3) L 03/29/18 11:26 Globulin 2.9 gm/dL 03/29/18 11:26 Albumin/Globulin Ratio 1.1 (1.0-1.8) 03/29/18 11:26 Triglycerides 88 mg/dL (<150) 03/29/18 11:26 Cholesterol 168 mg/dL (<200) 03/29/18 11:26 LDL Cholesterol Direct 120 mg/dL (75-193) 03/29/18 11:26 HDL Cholesterol 31 mg/dL (23-92) 03/29/18 11:26 Urine Source CATH 03/30/18 10:05 Urine Color YELLOW 03/30/18 10:05 Urine Clarity CLEAR (CLEAR) 03/30/18 10:05 Urine pH 6.0 (4.6 - 8.0) 03/30/18 10:05 Ur Specific [place] 1.015 (1.005-1.030) 03/30/18 10:05 Urine Protein NEGATIVE mg/dL (NEGATIVE) 03/30/18 10:05 Urine Glucose (UA) NEGATIVE mg/dL (NEGATIVE) 03/30/18 10:05 Urine Ketones NEGATIVE mg/dL (NEGATIVE) 03/30/18 10:05 Urine Blood NEGATIVE (NEGATIVE) 03/30/18 10:05 Urine Nitrate NEGATIVE (NEGATIVE) 03/30/18 10:05 Urine Bilirubin NEGATIVE (NEGATIVE) 03/30/18 10:05 Urine Urobilinogen 0.2 E.U./dL (0.2 - 1.0) 03/30/18 10:05 Ur Leukocyte Esterase NEGATIVE (NEGATIVE) 03/30/18 10:05 Urine RBC 0-2 /hpf (0-5) 03/30/18 10:05 Urine WBC 0-2 /hpf (0-5) 03/30/18 10:05 Ur Epithelial Cells FEW /lpf (FEW) 03/30/18 10:05 Urine Bacteria OCCASIONAL /hpf (NONE SEEN) 03/30/18 10:05 - Physical Exam Vitals and I&O: Vital Signs Temp 97.2 F 04/01/18 11:55 Pulse 78 04/01/18 11:55 Resp 18 04/01/18 11:55 BP 116/69 04/01/18 11:55 Pulse Ox 99 04/01/18 11:55 Intake & Output 03/31/18 04/01/18 04/01/18 18:59 06:59 18:59 Intake Total 1900 1000 Balance 1900 1000 Weight (lbs) 49.016 kg 48.988 kg Intake: Intake, IV Amount 1000 1000 D5-0.45NS 1,000 ml @ 50 1000 1000 mls/hr IV .Q20H [facility] Rx#: [id number] Oral 900 Other: # Voids 3 2 # Bowel Movements 0 Weight Source Bedscale Bedscale Active Medications: Current Medications Diazepam (Valium) 5 mg PO TID [facility]; Protocol Stop: 05/30/18 13:59 Last Admin: 04/01/18 13:32 Dose: 5 mg Docusate Sodium (Colace) 100 mg PO BID [facility] Stop: 05/30/18 08:59 Last Admin: 04/01/18 08:10 Dose: 100 mg Dextrose/Sodium Chloride (D5-0.45ns) 1,000 mls @ 50 mls/hr IV .Q20H [facility] Stop: 05/28/18 00:00 Last Admin: 04/01/18 13:24 Dose: 50 mls/hr Magnesium Hydroxide (Milk Of Magnesia) 30 ml PO HS PRN PRN Reason: Constipation Stop: 05/30/18 08:12 Mirtazapine (Remeron) 7.5 mg PO HS [facility]; Protocol Stop: 05/28/18 12:15 Last Admin: 03/31/18 22:44 Dose: Not Given Ondansetron HCl (Zofran Odt) 4 mg PO Q6HR PRN PRN Reason: Nausea / Vomiting Stop: 05/28/18 16:04 Polyethylene Glycol (Miralax) 17 gm PO BID [facility] Stop: 05/28/18 16:59 Last Admin: 04/01/18 08:10 Dose: 17 gm Quetiapine Fumarate (Seroquel) 25 mg PO Q6H PRN; Protocol PRN Reason: Agitation Stop: 05/28/18 16:04 Quetiapine Fumarate (Seroquel) 50 mg PO BID [facility]; Protocol Stop: 05/28/18 16:59 Last Admin: 04/01/18 08:10 Dose: 50 mg
--- NOTE | 2018-04-01 16:22 | GI Progress Note ---
Subjective - Review of Systems Subjective: NO EVENTS EATING AND HAVING BM PER STAFF Objective - Results Result Diagrams: 03/29/18 11:26 03/29/18 11:26 Recent Labs: Laboratory Last Values WBC 5.8 Th/cmm (4.8-10.8) D 03/29/18 11:26 RBC 4.24 Mil/cmm (3.80-5.10) 03/29/18 11:26 Hgb 13.0 gm/dL (12-16) 03/29/18 11:26 Hct 38.6 % (41.0-60) L D 03/29/18 11:26 MCV 90.9 fl (81-100) 03/29/18 11:26 MCH 30.7 pg (27.0-31.0) 03/29/18 11:26 MCHC Differential 33.8 pg (28.0-36.0) 03/29/18 11:26 RDW 12.2 % (11.5-20.0) 03/29/18 11:26 Plt Count 226 Th/cmm (150-400) 03/29/18 11:26 MPV 8.6 fl 03/29/18 11:26 Neutrophils % 54.0 % (40.0-80.0) 03/29/18 11:26 Lymphocytes % 33.9 % (20.0-50.0) 03/29/18 11:26 Monocytes % 9.0 % (2.0-10.0) 03/29/18 11:26 Eosinophils % 3.0 % (0.0-5.0) 03/29/18 11:26 Basophils % 0.1 % (0.0-2.0) 03/29/18 11:26 Sodium 135 mEq/L (136-145) L 03/29/18 11:26 Potassium 3.8 mEq/L (3.5-5.1) 03/29/18 11:26 Chloride 104 mEq/L (98-107) 03/29/18 11:26 Carbon Dioxide 24.0 mEq/L (21.0-31.0) 03/29/18 11:26 Anion Gap 10.8 (7.0-16.0) 03/29/18 11:26 BUN 12 mg/dL (7-25) 03/29/18 11:26 Creatinine 0.7 mg/dL (0.6-1.2) 03/29/18 11:26 Est GFR ( Amer) > 60.0 ml/min (>90) 03/29/18 11:26 Est GFR (Non-Af Amer) > 60.0 ml/min 03/29/18 11:26 BUN/Creatinine Ratio 17.1 03/29/18 11:26 Glucose 363 mg/dL (70-105) H D 03/29/18 11:26 POC Glucose 98 MG/DL (70 - 105) 04/01/18 07:56 Calcium 8.4 mg/dL (8.6-10.3) L 03/29/18 11:26 Magnesium 2.3 mg/dL (1.9-2.7) 03/29/18 11:26 Total Bilirubin 0.8 mg/dL (0.3-1.0) 03/29/18 11:26 AST 17 U/L (13-39) 03/29/18 11:26 ALT 25 U/L (7-52) 03/29/18 11:26 Alkaline Phosphatase 58 U/L (34-104) 03/29/18 11:26 Total Protein 6.2 gm/dL (6.0-8.3) 03/29/18 11:26 Albumin 3.3 gm/dL (3.7-5.3) L 03/29/18 11:26 Globulin 2.9 gm/dL 03/29/18 11:26 Albumin/Globulin Ratio 1.1 (1.0-1.8) 03/29/18 11:26 Triglycerides 88 mg/dL (<150) 03/29/18 11:26 Cholesterol 168 mg/dL (<200) 03/29/18 11:26 LDL Cholesterol Direct 120 mg/dL (75-193) 03/29/18 11:26 HDL Cholesterol 31 mg/dL (23-92) 03/29/18 11:26 Urine Source CATH 03/30/18 10:05 Urine Color YELLOW 03/30/18 10:05 Urine Clarity CLEAR (CLEAR) 03/30/18 10:05 Urine pH 6.0 (4.6 - 8.0) 03/30/18 10:05 Ur Specific [place] 1.015 (1.005-1.030) 03/30/18 10:05 Urine Protein NEGATIVE mg/dL (NEGATIVE) 03/30/18 10:05 Urine Glucose (UA) NEGATIVE mg/dL (NEGATIVE) 03/30/18 10:05 Urine Ketones NEGATIVE mg/dL (NEGATIVE) 03/30/18 10:05 Urine Blood NEGATIVE (NEGATIVE) 03/30/18 10:05 Urine Nitrate NEGATIVE (NEGATIVE) 03/30/18 10:05 Urine Bilirubin NEGATIVE (NEGATIVE) 03/30/18 10:05 Urine Urobilinogen 0.2 E.U./dL (0.2 - 1.0) 03/30/18 10:05 Ur Leukocyte Esterase NEGATIVE (NEGATIVE) 03/30/18 10:05 Urine RBC 0-2 /hpf (0-5) 03/30/18 10:05 Urine WBC 0-2 /hpf (0-5) 03/30/18 10:05 Ur Epithelial Cells FEW /lpf (FEW) 03/30/18 10:05 Urine Bacteria OCCASIONAL /hpf (NONE SEEN) 03/30/18 10:05 - Physical Exam Vitals and I&O: Vital Signs Temp 97.4 F 04/01/18 15:00 Pulse 71 04/01/18 15:00 Resp 18 04/01/18 15:00 BP 111/63 04/01/18 15:00 Pulse Ox 98 04/01/18 15:00 Intake & Output 03/31/18 04/01/18 04/01/18 18:59 06:59 18:59 Intake Total 1900 1000 Balance 1900 1000 Weight (lbs) 49.016 kg 48.988 kg Intake: Intake, IV Amount 1000 1000 D5-0.45NS 1,000 ml @ 50 1000 1000 mls/hr IV .Q20H [facility] Rx#: [id number] Oral 900 Other: # Voids 3 2 # Bowel Movements 0 Weight Source Bedscale Bedscale Active Medications: Current Medications Diazepam (Valium) 5 mg PO TID [facility]; Protocol Stop: 05/30/18 13:59 Last Admin: 04/01/18 13:32 Dose: 5 mg Docusate Sodium (Colace) 100 mg PO BID [facility] Stop: 05/30/18 08:59 Last Admin: 04/01/18 08:10 Dose: 100 mg Dextrose/Sodium Chloride (D5-0.45ns) 1,000 mls @ 50 mls/hr IV .Q20H [facility] Stop: 05/28/18 00:00 Last Admin: 04/01/18 13:24 Dose: 50 mls/hr Magnesium Hydroxide (Milk Of Magnesia) 30 ml PO HS PRN PRN Reason: Constipation Stop: 05/30/18 08:12 Mirtazapine (Remeron) 7.5 mg PO HS [facility]; Protocol Stop: 05/28/18 12:15 Last Admin: 03/31/18 22:44 Dose: Not Given Ondansetron HCl (Zofran Odt) 4 mg PO Q6HR PRN PRN Reason: Nausea / Vomiting Stop: 05/28/18 16:04 Polyethylene Glycol (Miralax) 17 gm PO BID [facility] Stop: 05/28/18 16:59 Last Admin: 04/01/18 08:10 Dose: 17 gm Quetiapine Fumarate (Seroquel) 25 mg PO Q6H PRN; Protocol PRN Reason: Agitation Stop: 05/28/18 16:04 Quetiapine Fumarate (Seroquel) 50 mg PO BID [facility]; Protocol Stop: 05/28/18 16:59 Last Admin: 04/01/18 08:10 Dose: 50 mg Assessment/Plan - Assessment Assessment: 62 YO FEMALE WITH ALLEGED WEIGHT LOSS UNCLEAR ETIOLOGY OR [place] LFT[place] NORMAL CT ABD PELVIS SHOWED CONSTIPATION AND PATRICIO CHANGES 1.LAXATIVES 2.CONT SUPP CARE 3.DEFER OTHER MANAGEMENT TO HOSPITALIST 4.CONSIDER SCR COLO OUTPATIENT IF DUE FOR ONE AND TO BE CURRENT WITH SCR TESTS; F/U PCP TO ARRANGE 5.WILL SEE NEEDED; CALL IF QUESTIONS
--- NOTE | 2018-04-02 01:21 | Progress Notes ---
DATE: 04/01/2018 Case was discussed with staff of the patient. The patient is reported to be a little bit calmer. She is less agitated, less yelling and screaming. She tolerated the Remeron with no side effects. Continues to be however, unpredictable, impulsive, unable to make safe plan for self-care or participate in a meaningful conversation. Thank you very much for allowing me to participate in the care of this most interesting lady. JOB# [id number]
[2018-04-02] MEDS: POLYETHYLENE GLYCOL 3350 17 GM PACK PO SCH ×2 (08:47→16:27)
[2018-04-02] MEDS: D5-0.45NS 1,000 ML IV SCH (14:21)
--- NOTE | 2018-04-02 20:03 | Internal Medicine Prog Note ---
Internal Medicine Subjective - Subjective Service Date: 04/02/18 Patient seen and examined:: with staff Patient is:: awake (\), confused (\\\\\\\\\\) Per staff patient has:: no adverse event Internal Medicine Objective - Results Result Diagrams: 03/29/18 11:26 03/29/18 11:26 Recent Labs: Laboratory Last Values WBC 5.8 Th/cmm (4.8-10.8) D 03/29/18 11:26 RBC 4.24 Mil/cmm (3.80-5.10) 03/29/18 11:26 Hgb 13.0 gm/dL (12-16) 03/29/18 11:26 Hct 38.6 % (41.0-60) L D 03/29/18 11:26 MCV 90.9 fl (81-100) 03/29/18 11:26 MCH 30.7 pg (27.0-31.0) 03/29/18 11:26 MCHC Differential 33.8 pg (28.0-36.0) 03/29/18 11:26 RDW 12.2 % (11.5-20.0) 03/29/18 11:26 Plt Count 226 Th/cmm (150-400) 03/29/18 11:26 MPV 8.6 fl 03/29/18 11:26 Neutrophils % 54.0 % (40.0-80.0) 03/29/18 11:26 Lymphocytes % 33.9 % (20.0-50.0) 03/29/18 11:26 Monocytes % 9.0 % (2.0-10.0) 03/29/18 11:26 Eosinophils % 3.0 % (0.0-5.0) 03/29/18 11:26 Basophils % 0.1 % (0.0-2.0) 03/29/18 11:26 Sodium 135 mEq/L (136-145) L 03/29/18 11:26 Potassium 3.8 mEq/L (3.5-5.1) 03/29/18 11:26 Chloride 104 mEq/L (98-107) 03/29/18 11:26 Carbon Dioxide 24.0 mEq/L (21.0-31.0) 03/29/18 11:26 Anion Gap 10.8 (7.0-16.0) 03/29/18 11:26 BUN 12 mg/dL (7-25) 03/29/18 11:26 Creatinine 0.7 mg/dL (0.6-1.2) 03/29/18 11:26 Est GFR ( Amer) > 60.0 ml/min (>90) 03/29/18 11:26 Est GFR (Non-Af Amer) > 60.0 ml/min 03/29/18 11:26 BUN/Creatinine Ratio 17.1 03/29/18 11:26 Glucose 363 mg/dL (70-105) H D 03/29/18 11:26 POC Glucose 98 MG/DL (70 - 105) 04/01/18 07:56 Calcium 8.4 mg/dL (8.6-10.3) L 03/29/18 11:26 Magnesium 2.3 mg/dL (1.9-2.7) 03/29/18 11:26 Total Bilirubin 0.8 mg/dL (0.3-1.0) 03/29/18 11:26 AST 17 U/L (13-39) 03/29/18 11:26 ALT 25 U/L (7-52) 03/29/18 11:26 Alkaline Phosphatase 58 U/L (34-104) 03/29/18 11:26 Total Protein 6.2 gm/dL (6.0-8.3) 03/29/18 11:26 Albumin 3.3 gm/dL (3.7-5.3) L 03/29/18 11:26 Globulin 2.9 gm/dL 03/29/18 11:26 Albumin/Globulin Ratio 1.1 (1.0-1.8) 03/29/18 11:26 Triglycerides 88 mg/dL (<150) 03/29/18 11:26 Cholesterol 168 mg/dL (<200) 03/29/18 11:26 LDL Cholesterol Direct 120 mg/dL (75-193) 03/29/18 11:26 HDL Cholesterol 31 mg/dL (23-92) 03/29/18 11:26 Urine Source CATH 03/30/18 10:05 Urine Color YELLOW 03/30/18 10:05 Urine Clarity CLEAR (CLEAR) 03/30/18 10:05 Urine pH 6.0 (4.6 - 8.0) 03/30/18 10:05 Ur Specific [place] 1.015 (1.005-1.030) 03/30/18 10:05 Urine Protein NEGATIVE mg/dL (NEGATIVE) 03/30/18 10:05 Urine Glucose (UA) NEGATIVE mg/dL (NEGATIVE) 03/30/18 10:05 Urine Ketones NEGATIVE mg/dL (NEGATIVE) 03/30/18 10:05 Urine Blood NEGATIVE (NEGATIVE) 03/30/18 10:05 Urine Nitrate NEGATIVE (NEGATIVE) 03/30/18 10:05 Urine Bilirubin NEGATIVE (NEGATIVE) 03/30/18 10:05 Urine Urobilinogen 0.2 E.U./dL (0.2 - 1.0) 03/30/18 10:05 Ur Leukocyte Esterase NEGATIVE (NEGATIVE) 03/30/18 10:05 Urine RBC 0-2 /hpf (0-5) 03/30/18 10:05 Urine WBC 0-2 /hpf (0-5) 03/30/18 10:05 Ur Epithelial Cells FEW /lpf (FEW) 03/30/18 10:05 Urine Bacteria OCCASIONAL /hpf (NONE SEEN) 03/30/18 10:05 - Physical Exam Vitals and I&O: Vital Signs Temp 96.9 F 04/02/18 12:09 Pulse 62 04/02/18 12:09 Resp 18 04/02/18 12:09 BP 110/88 04/02/18 12:09 Pulse Ox 99 04/02/18 12:09 Intake & Output 04/02/18 04/02/18 04/03/18 06:59 18:59 06:59 Intake Total 300 1400 Balance 300 1400 Weight (lbs) 108 lb 108 lb Intake: Intake, IV Amount 1000 D5-0.45NS 1,000 ml @ 50 1000 mls/hr IV .Q20H [facility] Rx#: [id number] Oral 300 400 Other: # Voids 2 2 # Bowel Movements 1 Weight Source Bedscale Bedscale Active Medications: Current Medications Diazepam (Valium) 5 mg PO TID [facility]; Protocol Stop: 05/30/18 13:59 Last Admin: 04/02/18 14:03 Dose: 5 mg Docusate Sodium (Colace) 100 mg PO BID [facility] Stop: 05/30/18 08:59 Last Admin: 04/02/18 16:27 Dose: 100 mg Dextrose/Sodium Chloride (D5-0.45ns) 1,000 mls @ 50 mls/hr IV .Q20H [facility] Stop: 05/28/18 00:00 Last Admin: 04/02/18 14:21 Dose: 50 mls/hr Magnesium Hydroxide (Milk Of Magnesia) 30 ml PO HS PRN PRN Reason: Constipation Stop: 05/30/18 08:12 Mirtazapine (Remeron) 7.5 mg PO HS [facility]; Protocol Stop: 05/28/18 12:15 Last Admin: 04/01/18 20:53 Dose: 7.5 mg Ondansetron HCl (Zofran Odt) 4 mg PO Q6HR PRN PRN Reason: Nausea / Vomiting Stop: 05/28/18 16:04 Polyethylene Glycol (Miralax) 17 gm PO BID NITO Stop: 05/28/18 16:59 Last Admin: 04/02/18 16:27 Dose: 17 gm Quetiapine Fumarate (Seroquel) 25 mg PO Q6H PRN; Protocol PRN Reason: Agitation Stop: 05/28/18 16:04 Quetiapine Fumarate (Seroquel) 50 mg PO BID [facility]; Protocol Stop: 05/28/18 16:59 Last Admin: 04/02/18 16:27 Dose: 50 mg General: weak, demented HEENT: NC/AT, PERRLA Neck: Supple Lungs: CTAB Abdomen: distended (mildly) Neurological: unable to follow command, other (confused) Internal Medicine Assmt/Plan - Assessment Assessment: constipation altered mental status oa - Plan Plan: continue laxatives sitter for safety fall precautions continue current plan of care Nutritional Asmnt/Malnutr-PDOC - Dietary Evaluation Malnutrition Findings (Please click <Entered> for more info): Nutritional Asmnt/Malnutrition Start: 04/01/18 16: 56 Text: Status: Complete Freq: Protocol: Document 04/01/18 16:56 LCHENG (Rec: 04/01/18 17:13 [id number]) Nutritional Asmnt/Malnutrition Patient General Information Nutritional Screening Moderate Risk Diagnosis altered mental status Pertinent Medical Hx/Surgical Hx degenerative psychosis Subjective Information Pt seen lying in bed at time of visit, confused. Per EMR, PO intake 100%. Per nurse pt had fical impaction and has BM now. Current Diet Order/ Nutrition Support regular Pertinent Medications D5-0.45ns, colace, remeron, miralax, seroquel Pertinent Labs 03/29 Na 135, glucose 363 04/01 POC 98 Nutritional Hx/Data Height 5 ft 4 in Height (Calculated Centimeters) 162.6 Current Weight (lbs) 108 lb Weight (Calculated Kilograms) 49.0 Weight (Calculated Grams) 04807.0 Spencer Body Weight 120 Body Mass Index (BMI) 18.5 Weight Status Approriate GI Symptoms GI Symptoms None Last BM none per EMR Difficult in: None Skin Integrity/Comment: intact Current %PO Good (75-100%) Estimated Nutritional Goals BEE in Kcals: Using Current wt Calories/Kcals/Kg 25-30 Kcals Calculated 9228-8732 Protein: Using Current wt Protein g/k Protein Calculated 49 Fluid: ml 1225-1470ml (1ml/kcal) Nutritional Problem No current Nutrition Prob Problem N/A Intervention/Recommendation Comments 1. Continue with regular diet as ordered. 2. Monitor PO intake, wt, labs and skin integrity 3. F/U as low risk in 7 days, 04/08 Expected Outcomes/Goals Expected Outcomes/Goals 1. PO intake to meet at least 75% of nutritional needs. 2. Wt stability, skin to remain intact, labs to approach WNL.
--- NOTE | 2018-04-02 21:04 | Progress Notes ---
DATE: 04/02/2018 Case was discussed with staff of the patient, reviewed records. The patient continues to obsess irritability, agitation. However, in general, she feels better. She is easier to redirect. She is sleeping well, eating well. She tolerated the Remeron and she is also on Seroquel 50 mg twice a day and 25 mg every 6 hours as needed with no side effects, no sedation, no nausea. Thank you very much for allowing me to participate in the care of this most interesting lady. JOB# [id number]
[2018-04-03] MEDS: POLYETHYLENE GLYCOL 3350 17 GM PACK PO SCH ×2 (09:22→16:44)
--- NOTE | 2018-04-03 12:18 | General Progress Note ---
Subjective - Review of Systems Events since last encounter: awake confused Objective - Results Result Diagrams: 03/29/18 11:26 03/29/18 11:26 Recent Labs: Laboratory Last Values WBC 5.8 Th/cmm (4.8-10.8) D 03/29/18 11:26 RBC 4.24 Mil/cmm (3.80-5.10) 03/29/18 11:26 Hgb 13.0 gm/dL (12-16) 03/29/18 11:26 Hct 38.6 % (41.0-60) L D 03/29/18 11:26 MCV 90.9 fl (81-100) 03/29/18 11:26 MCH 30.7 pg (27.0-31.0) 03/29/18 11:26 MCHC Differential 33.8 pg (28.0-36.0) 03/29/18 11:26 RDW 12.2 % (11.5-20.0) 03/29/18 11:26 Plt Count 226 Th/cmm (150-400) 03/29/18 11:26 MPV 8.6 fl 03/29/18 11:26 Neutrophils % 54.0 % (40.0-80.0) 03/29/18 11:26 Lymphocytes % 33.9 % (20.0-50.0) 03/29/18 11:26 Monocytes % 9.0 % (2.0-10.0) 03/29/18 11:26 Eosinophils % 3.0 % (0.0-5.0) 03/29/18 11:26 Basophils % 0.1 % (0.0-2.0) 03/29/18 11:26 Sodium 135 mEq/L (136-145) L 03/29/18 11:26 Potassium 3.8 mEq/L (3.5-5.1) 03/29/18 11:26 Chloride 104 mEq/L (98-107) 03/29/18 11:26 Carbon Dioxide 24.0 mEq/L (21.0-31.0) 03/29/18 11:26 Anion Gap 10.8 (7.0-16.0) 03/29/18 11:26 BUN 12 mg/dL (7-25) 03/29/18 11:26 Creatinine 0.7 mg/dL (0.6-1.2) 03/29/18 11:26 Est GFR ( Amer) > 60.0 ml/min (>90) 03/29/18 11:26 Est GFR (Non-Af Amer) > 60.0 ml/min 03/29/18 11:26 BUN/Creatinine Ratio 17.1 03/29/18 11:26 Glucose 363 mg/dL (70-105) H D 03/29/18 11:26 POC Glucose 98 MG/DL (70 - 105) 04/01/18 07:56 Calcium 8.4 mg/dL (8.6-10.3) L 03/29/18 11:26 Magnesium 2.3 mg/dL (1.9-2.7) 03/29/18 11:26 Total Bilirubin 0.8 mg/dL (0.3-1.0) 03/29/18 11:26 AST 17 U/L (13-39) 03/29/18 11:26 ALT 25 U/L (7-52) 03/29/18 11:26 Alkaline Phosphatase 58 U/L (34-104) 03/29/18 11:26 Total Protein 6.2 gm/dL (6.0-8.3) 03/29/18 11:26 Albumin 3.3 gm/dL (3.7-5.3) L 03/29/18 11:26 Globulin 2.9 gm/dL 03/29/18 11:26 Albumin/Globulin Ratio 1.1 (1.0-1.8) 03/29/18 11:26 Triglycerides 88 mg/dL (<150) 03/29/18 11:26 Cholesterol 168 mg/dL (<200) 03/29/18 11:26 LDL Cholesterol Direct 120 mg/dL (75-193) 03/29/18 11:26 HDL Cholesterol 31 mg/dL (23-92) 03/29/18 11:26 Urine Source CATH 03/30/18 10:05 Urine Color YELLOW 03/30/18 10:05 Urine Clarity CLEAR (CLEAR) 03/30/18 10:05 Urine pH 6.0 (4.6 - 8.0) 03/30/18 10:05 Ur Specific [place] 1.015 (1.005-1.030) 03/30/18 10:05 Urine Protein NEGATIVE mg/dL (NEGATIVE) 03/30/18 10:05 Urine Glucose (UA) NEGATIVE mg/dL (NEGATIVE) 03/30/18 10:05 Urine Ketones NEGATIVE mg/dL (NEGATIVE) 03/30/18 10:05 Urine Blood NEGATIVE (NEGATIVE) 03/30/18 10:05 Urine Nitrate NEGATIVE (NEGATIVE) 03/30/18 10:05 Urine Bilirubin NEGATIVE (NEGATIVE) 03/30/18 10:05 Urine Urobilinogen 0.2 E.U./dL (0.2 - 1.0) 03/30/18 10:05 Ur Leukocyte Esterase NEGATIVE (NEGATIVE) 03/30/18 10:05 Urine RBC 0-2 /hpf (0-5) 03/30/18 10:05 Urine WBC 0-2 /hpf (0-5) 03/30/18 10:05 Ur Epithelial Cells FEW /lpf (FEW) 03/30/18 10:05 Urine Bacteria OCCASIONAL /hpf (NONE SEEN) 03/30/18 10:05 - Physical Exam Vitals and I&O: Vital Signs Temp 96.9 F 04/03/18 11:35 Pulse 82 04/03/18 11:35 Resp 18 04/03/18 11:35 BP 125/86 04/03/18 11:35 Pulse Ox 98 04/03/18 11:35 Intake & Output 04/02/18 04/03/18 04/03/18 18:59 06:59 18:59 Intake Total 1400 120 Balance 1400 120 Weight (lbs) 48.988 kg 49.895 kg Intake: Intake, IV Amount 1000 D5-0.45NS 1,000 ml @ 50 1000 mls/hr IV .Q20H [facility] Rx#: [id number] Oral 400 120 Other: # Voids 2 2 # Bowel Movements 1 0 Weight Source Bedscale Bedscale Active Medications: Current Medications Diazepam (Valium) 5 mg PO TID [facility]; Protocol Stop: 05/30/18 13:59 Last Admin: 04/03/18 09:22 Dose: 5 mg Docusate Sodium (Colace) 100 mg PO BID [facility] Stop: 05/30/18 08:59 Last Admin: 04/03/18 09:22 Dose: 100 mg Dextrose/Sodium Chloride (D5-0.45ns) 1,000 mls @ 50 mls/hr IV .Q20H [facility] Stop: 05/28/18 00:00 Last Admin: 04/02/18 14:21 Dose: 50 mls/hr Magnesium Hydroxide (Milk Of Magnesia) 30 ml PO HS PRN PRN Reason: Constipation Stop: 05/30/18 08:12 Mirtazapine (Remeron) 7.5 mg PO HS [facility]; Protocol Stop: 05/28/18 12:15 Last Admin: 04/02/18 21:44 Dose: 7.5 mg Ondansetron HCl (Zofran Odt) 4 mg PO Q6HR PRN PRN Reason: Nausea / Vomiting Stop: 05/28/18 16:04 Polyethylene Glycol (Miralax) 17 gm PO BID [facility] Stop: 05/28/18 16:59 Last Admin: 04/03/18 09:22 Dose: 17 gm Quetiapine Fumarate (Seroquel) 25 mg PO Q6H PRN; Protocol PRN Reason: Agitation Stop: 05/28/18 16:04 Quetiapine Fumarate (Seroquel) 50 mg PO BID [facility]; Protocol Stop: 05/28/18 16:59 Last Admin: 04/03/18 09:22 Dose: 50 mg General: No acute distress HEENT: Atraumatic Neck: Supple Cardiovascular: Regular rate, Normal S1, Normal S2 Lungs: Clear to auscultation Assessment/Plan - Problem List Patient Problems: All Active Problems Altered mental state (Acute) R41.82 Constipation (Acute) K59.00 Osteoarthritis (Acute) M19.90 - Plan Plan: as per order sheet Nutritional Asmnt/Malnutr-PDOC - Dietary Evaluation Malnutrition Findings (Please click <Entered> for more info): Nutritional Asmnt/Malnutrition Start: 04/01/18 16: 56 Text: Status: Complete Freq: Protocol: Document 04/01/18 16:56 LCHENG (Rec: 04/01/18 17:13 [email or web address]) Nutritional Asmnt/Malnutrition Patient General Information Nutritional Screening Moderate Risk Diagnosis altered mental status Pertinent Medical Hx/Surgical Hx degenerative psychosis Subjective Information Pt seen lying in bed at time of visit, confused. Per EMR, PO intake 100%. Per nurse pt had fical impaction and has BM now. Current Diet Order/ Nutrition Support regular Pertinent Medications D5-0.45ns, colace, remeron, miralax, seroquel Pertinent Labs 03/29 Na 135, glucose 363 04/01 POC 98 Nutritional Hx/Data Height 1.63 m Height (Calculated Centimeters) 162.6 Current Weight (lbs) 48.988 kg Weight (Calculated Kilograms) 49.0 Weight (Calculated Grams) 30179.0 [place] Body Weight 120 Body Mass Index (BMI) 18.5 Weight Status Approriate GI Symptoms GI Symptoms None Last BM none per EMR Difficult in: None Skin Integrity/Comment: intact Current %PO Good (75-100%) Estimated Nutritional Goals BEE in Kcals: Using Current wt Calories/Kcals/Kg 25-30 Kcals Calculated 4651-1360 Protein: Using Current wt Protein g/k Protein Calculated 49 Fluid: ml 1225-1470ml (1ml/kcal) Nutritional Problem No current Nutrition Prob Problem N/A Intervention/Recommendation Comments 1. Continue with regular diet as ordered. 2. Monitor PO intake, wt, labs and skin integrity 3. F/U as low risk in 7 days, 04/08 Expected Outcomes/Goals Expected Outcomes/Goals 1. PO intake to meet at least 75% of nutritional needs. 2. Wt stability, skin to remain intact, labs to approach WNL.
[2018-04-03] MEDS: D5-0.45NS 1,000 ML IV SCH (17:24)
--- NOTE | 2018-04-03 21:13 | Progress Notes ---
DATE: 04/03/2018 Case was discussed with staff of the patient, reviewed records. The patient continues to unable to accept herself. Continues to have episodes of agitation. However, in general the staff reports she is much easier to redirect. She is sleeping better, eating better. She has been compliant with the medication with no side effects, no sedation, no nausea, no extrapyramidal symptoms. We will continue to work with the patient in group therapy, milieu therapy, and adjust the medication as needed. JOB# [id number]
[2018-04-04] MEDS: POLYETHYLENE GLYCOL 3350 17 GM PACK PO SCH ×2 (09:27→17:52)
--- NOTE | 2018-04-04 10:07 | General Progress Note ---
Subjective - Review of Systems Events since last encounter: patient awake alert doing better denies pain Objective - Results Result Diagrams: 03/29/18 11:26 03/29/18 11:26 Recent Labs: Laboratory Last Values WBC 5.8 Th/cmm (4.8-10.8) D 03/29/18 11:26 RBC 4.24 Mil/cmm (3.80-5.10) 03/29/18 11:26 Hgb 13.0 gm/dL (12-16) 03/29/18 11:26 Hct 38.6 % (41.0-60) L D 03/29/18 11:26 MCV 90.9 fl (81-100) 03/29/18 11:26 MCH 30.7 pg (27.0-31.0) 03/29/18 11:26 MCHC Differential 33.8 pg (28.0-36.0) 03/29/18 11:26 RDW 12.2 % (11.5-20.0) 03/29/18 11:26 Plt Count 226 Th/cmm (150-400) 03/29/18 11:26 MPV 8.6 fl 03/29/18 11:26 Neutrophils % 54.0 % (40.0-80.0) 03/29/18 11:26 Lymphocytes % 33.9 % (20.0-50.0) 03/29/18 11:26 Monocytes % 9.0 % (2.0-10.0) 03/29/18 11:26 Eosinophils % 3.0 % (0.0-5.0) 03/29/18 11:26 Basophils % 0.1 % (0.0-2.0) 03/29/18 11:26 Sodium 135 mEq/L (136-145) L 03/29/18 11:26 Potassium 3.8 mEq/L (3.5-5.1) 03/29/18 11:26 Chloride 104 mEq/L (98-107) 03/29/18 11:26 Carbon Dioxide 24.0 mEq/L (21.0-31.0) 03/29/18 11:26 Anion Gap 10.8 (7.0-16.0) 03/29/18 11:26 BUN 12 mg/dL (7-25) 03/29/18 11:26 Creatinine 0.7 mg/dL (0.6-1.2) 03/29/18 11:26 Est GFR ( Amer) > 60.0 ml/min (>90) 03/29/18 11:26 Est GFR (Non-Af Amer) > 60.0 ml/min 03/29/18 11:26 BUN/Creatinine Ratio 17.1 03/29/18 11:26 Glucose 363 mg/dL (70-105) H D 03/29/18 11:26 POC Glucose 98 MG/DL (70 - 105) 04/01/18 07:56 Calcium 8.4 mg/dL (8.6-10.3) L 03/29/18 11:26 Magnesium 2.3 mg/dL (1.9-2.7) 03/29/18 11:26 Total Bilirubin 0.8 mg/dL (0.3-1.0) 03/29/18 11:26 AST 17 U/L (13-39) 03/29/18 11:26 ALT 25 U/L (7-52) 03/29/18 11:26 Alkaline Phosphatase 58 U/L (34-104) 03/29/18 11:26 Total Protein 6.2 gm/dL (6.0-8.3) 03/29/18 11:26 Albumin 3.3 gm/dL (3.7-5.3) L 03/29/18 11:26 Globulin 2.9 gm/dL 03/29/18 11:26 Albumin/Globulin Ratio 1.1 (1.0-1.8) 03/29/18 11:26 Triglycerides 88 mg/dL (<150) 03/29/18 11:26 Cholesterol 168 mg/dL (<200) 03/29/18 11:26 LDL Cholesterol Direct 120 mg/dL (75-193) 03/29/18 11:26 HDL Cholesterol 31 mg/dL (23-92) 03/29/18 11:26 Urine Source CATH 03/30/18 10:05 Urine Color YELLOW 03/30/18 10:05 Urine Clarity CLEAR (CLEAR) 03/30/18 10:05 Urine pH 6.0 (4.6 - 8.0) 03/30/18 10:05 Ur Specific [place] 1.015 (1.005-1.030) 03/30/18 10:05 Urine Protein NEGATIVE mg/dL (NEGATIVE) 03/30/18 10:05 Urine Glucose (UA) NEGATIVE mg/dL (NEGATIVE) 03/30/18 10:05 Urine Ketones NEGATIVE mg/dL (NEGATIVE) 03/30/18 10:05 Urine Blood NEGATIVE (NEGATIVE) 03/30/18 10:05 Urine Nitrate NEGATIVE (NEGATIVE) 03/30/18 10:05 Urine Bilirubin NEGATIVE (NEGATIVE) 03/30/18 10:05 Urine Urobilinogen 0.2 E.U./dL (0.2 - 1.0) 03/30/18 10:05 Ur Leukocyte Esterase NEGATIVE (NEGATIVE) 03/30/18 10:05 Urine RBC 0-2 /hpf (0-5) 03/30/18 10:05 Urine WBC 0-2 /hpf (0-5) 03/30/18 10:05 Ur Epithelial Cells FEW /lpf (FEW) 03/30/18 10:05 Urine Bacteria OCCASIONAL /hpf (NONE SEEN) 03/30/18 10:05 - Physical Exam Vitals and I&O: Vital Signs Temp 97 F 04/04/18 04:00 Pulse 68 04/04/18 04:00 Resp 17 04/04/18 04:00 BP 130/72 04/04/18 04:00 Pulse Ox 94 04/04/18 00:00 Intake & Output 04/03/18 04/04/18 04/04/18 18:59 06:59 18:59 Intake Total 1000 300 Balance 1000 300 Weight (lbs) 49.895 kg Intake: Intake, IV Amount 1000 D5-0.45NS 1,000 ml @ 50 1000 mls/hr IV .Q20H [facility] Rx#: [id number] Oral 300 Other: # Voids 2 # Bowel Movements 1 Weight Source Bedscale Active Medications: Current Medications Diazepam (Valium) 5 mg PO TID [facility]; Protocol Stop: 05/30/18 13:59 Last Admin: 04/04/18 09:28 Dose: 5 mg Docusate Sodium (Colace) 100 mg PO BID [facility] Stop: 05/30/18 08:59 Last Admin: 04/04/18 09:27 Dose: 100 mg Dextrose/Sodium Chloride (D5-0.45ns) 1,000 mls @ 50 mls/hr IV .Q20H [facility] Stop: 05/28/18 00:00 Last Admin: 04/03/18 17:24 Dose: 50 mls/hr Lorazepam (Ativan) 0.5 mg PO Q4HR PRN; Protocol PRN Reason: Agitation Stop: 06/02/18 14:21 Magnesium Hydroxide (Milk Of Magnesia) 30 ml PO HS PRN PRN Reason: Constipation Stop: 05/30/18 08:12 Mirtazapine (Remeron) 7.5 mg PO HS [facility]; Protocol Stop: 05/28/18 12:15 Last Admin: 04/03/18 22:13 Dose: 7.5 mg Ondansetron HCl (Zofran Odt) 4 mg PO Q6HR PRN PRN Reason: Nausea / Vomiting Stop: 05/28/18 16:04 Polyethylene Glycol (Miralax) 17 gm PO BID [facility] Stop: 05/28/18 16:59 Last Admin: 04/04/18 09:27 Dose: 17 gm Quetiapine Fumarate (Seroquel) 25 mg PO Q6H PRN; Protocol PRN Reason: Agitation Stop: 05/28/18 16:04 Quetiapine Fumarate (Seroquel) 50 mg PO BID [facility]; Protocol Stop: 05/28/18 16:59 Last Admin: 04/04/18 09:27 Dose: 50 mg General: No acute distress HEENT: Atraumatic Neck: Supple Cardiovascular: Regular rate, Normal S1, Normal S2 Lungs: Clear to auscultation Assessment/Plan - Problem List Patient Problems: All Active Problems Altered mental state (Acute) R41.82 Constipation (Acute) K59.00 Osteoarthritis (Acute) M19.90 - Plan Plan: as per order sheet Nutritional Asmnt/Malnutr-PDOC - Dietary Evaluation Malnutrition Findings (Please click <Entered> for more info): Nutritional Asmnt/Malnutrition Start: 04/01/18 16: 56 Text: Status: Complete Freq: Protocol: Document 04/01/18 16:56 LCHENG (Rec: 04/01/18 17:13 LCKERRIG [email or web address]) Nutritional Asmnt/Malnutrition Patient General Information Nutritional Screening Moderate Risk Diagnosis altered mental status Pertinent Medical Hx/Surgical Hx degenerative psychosis Subjective Information Pt seen lying in bed at time of visit, confused. Per EMR, PO intake 100%. Per nurse pt had fical impaction and has BM now. Current Diet Order/ Nutrition Support regular Pertinent Medications D5-0.45ns, colace, remeron, miralax, seroquel Pertinent Labs 03/29 Na 135, glucose 363 04/01 POC 98 Nutritional Hx/Data Height 1.63 m Height (Calculated Centimeters) 162.6 Current Weight (lbs) 48.988 kg Weight (Calculated Kilograms) 49.0 Weight (Calculated Grams) 53696.0 [place] Body Weight 120 Body Mass Index (BMI) 18.5 Weight Status Approriate GI Symptoms GI Symptoms None Last BM none per EMR Difficult in: None Skin Integrity/Comment: intact Current %PO Good (75-100%) Estimated Nutritional Goals BEE in Kcals: Using Current wt Calories/Kcals/Kg 25-30 Kcals Calculated 6290-8278 Protein: Using Current wt Protein g/k Protein Calculated 49 Fluid: ml 1225-1470ml (1ml/kcal) Nutritional Problem No current Nutrition Prob Problem N/A Intervention/Recommendation Comments 1. Continue with regular diet as ordered. 2. Monitor PO intake, wt, labs and skin integrity 3. F/U as low risk in 7 days, 04/08 Expected Outcomes/Goals Expected Outcomes/Goals 1. PO intake to meet at least 75% of nutritional needs. 2. Wt stability, skin to remain intact, labs to approach WNL.
[2018-04-04] MEDS: D5-0.45NS 1,000 ML IV SCH (15:30)
--- NOTE | 2018-04-04 17:43 | Progress Notes ---
DATE: 04/04/2018 Case was discussed with staff of the patient, reviewed records. The patient continues to be unpredictable, impulsive, hard to redirect. However, she is not as agitated. She has been, according to the staff, easier to redirect. She is sleeping better, eating better. No side effects with the medication. No sedation. No nausea. No extrapyramidal symptoms. Thank you very much for allowing me to participate in the care of this most interesting lady. JOB# [id number]
[2018-04-05] MEDS: POLYETHYLENE GLYCOL 3350 17 GM PACK PO SCH ×2 (11:17→17:59)
[2018-04-05] MEDS: D5-0.45NS 1,000 ML IV SCH (14:22)
--- NOTE | 2018-04-05 21:16 | Internal Medicine Prog Note ---
Internal Medicine Subjective - Subjective Service Date: 04/05/18 Patient is:: awake (\), confused (\\\\\\\\\\) Per staff patient has:: no adverse event Internal Medicine Objective - Results Result Diagrams: 03/29/18 11:26 03/29/18 11:26 Recent Labs: Laboratory Last Values WBC 5.8 Th/cmm (4.8-10.8) D 03/29/18 11:26 RBC 4.24 Mil/cmm (3.80-5.10) 03/29/18 11:26 Hgb 13.0 gm/dL (12-16) 03/29/18 11:26 Hct 38.6 % (41.0-60) L D 03/29/18 11:26 MCV 90.9 fl (81-100) 03/29/18 11:26 MCH 30.7 pg (27.0-31.0) 03/29/18 11:26 MCHC Differential 33.8 pg (28.0-36.0) 03/29/18 11:26 RDW 12.2 % (11.5-20.0) 03/29/18 11:26 Plt Count 226 Th/cmm (150-400) 03/29/18 11:26 MPV 8.6 fl 03/29/18 11:26 Neutrophils % 54.0 % (40.0-80.0) 03/29/18 11:26 Lymphocytes % 33.9 % (20.0-50.0) 03/29/18 11:26 Monocytes % 9.0 % (2.0-10.0) 03/29/18 11:26 Eosinophils % 3.0 % (0.0-5.0) 03/29/18 11:26 Basophils % 0.1 % (0.0-2.0) 03/29/18 11:26 Sodium 135 mEq/L (136-145) L 03/29/18 11:26 Potassium 3.8 mEq/L (3.5-5.1) 03/29/18 11:26 Chloride 104 mEq/L (98-107) 03/29/18 11:26 Carbon Dioxide 24.0 mEq/L (21.0-31.0) 03/29/18 11:26 Anion Gap 10.8 (7.0-16.0) 03/29/18 11:26 BUN 12 mg/dL (7-25) 03/29/18 11:26 Creatinine 0.7 mg/dL (0.6-1.2) 03/29/18 11:26 Est GFR ( Amer) > 60.0 ml/min (>90) 03/29/18 11:26 Est GFR (Non-Af Amer) > 60.0 ml/min 03/29/18 11:26 BUN/Creatinine Ratio 17.1 03/29/18 11:26 Glucose 363 mg/dL (70-105) H D 03/29/18 11:26 POC Glucose 98 MG/DL (70 - 105) 04/01/18 07:56 Calcium 8.4 mg/dL (8.6-10.3) L 03/29/18 11:26 Magnesium 2.3 mg/dL (1.9-2.7) 03/29/18 11:26 Total Bilirubin 0.8 mg/dL (0.3-1.0) 03/29/18 11:26 AST 17 U/L (13-39) 03/29/18 11:26 ALT 25 U/L (7-52) 03/29/18 11:26 Alkaline Phosphatase 58 U/L (34-104) 03/29/18 11:26 Total Protein 6.2 gm/dL (6.0-8.3) 03/29/18 11:26 Albumin 3.3 gm/dL (3.7-5.3) L 03/29/18 11:26 Globulin 2.9 gm/dL 03/29/18 11:26 Albumin/Globulin Ratio 1.1 (1.0-1.8) 03/29/18 11:26 Triglycerides 88 mg/dL (<150) 03/29/18 11:26 Cholesterol 168 mg/dL (<200) 03/29/18 11:26 LDL Cholesterol Direct 120 mg/dL (75-193) 03/29/18 11:26 HDL Cholesterol 31 mg/dL (23-92) 03/29/18 11:26 Urine Source CATH 03/30/18 10:05 Urine Color YELLOW 03/30/18 10:05 Urine Clarity CLEAR (CLEAR) 03/30/18 10:05 Urine pH 6.0 (4.6 - 8.0) 03/30/18 10:05 Ur Specific [place] 1.015 (1.005-1.030) 03/30/18 10:05 Urine Protein NEGATIVE mg/dL (NEGATIVE) 03/30/18 10:05 Urine Glucose (UA) NEGATIVE mg/dL (NEGATIVE) 03/30/18 10:05 Urine Ketones NEGATIVE mg/dL (NEGATIVE) 03/30/18 10:05 Urine Blood NEGATIVE (NEGATIVE) 03/30/18 10:05 Urine Nitrate NEGATIVE (NEGATIVE) 03/30/18 10:05 Urine Bilirubin NEGATIVE (NEGATIVE) 03/30/18 10:05 Urine Urobilinogen 0.2 E.U./dL (0.2 - 1.0) 03/30/18 10:05 Ur Leukocyte Esterase NEGATIVE (NEGATIVE) 03/30/18 10:05 Urine RBC 0-2 /hpf (0-5) 03/30/18 10:05 Urine WBC 0-2 /hpf (0-5) 03/30/18 10:05 Ur Epithelial Cells FEW /lpf (FEW) 03/30/18 10:05 Urine Bacteria OCCASIONAL /hpf (NONE SEEN) 03/30/18 10:05 - Physical Exam Vitals and I&O: Vital Signs Temp 97.9 F 04/05/18 17:25 Pulse 76 04/05/18 17:25 Resp 18 04/05/18 17:25 BP 106/62 04/05/18 17:25 Pulse Ox 96 04/05/18 17:25 Intake & Output 04/05/18 04/05/18 04/06/18 06:59 18:59 06:59 Intake Total 1000 Balance 1000 Weight (lbs) 112 lb 8 oz Intake: Intake, IV Amount 1000 D5-0.45NS 1,000 ml @ 50 1000 mls/hr IV .Q20H [facility] Rx#: [id number] Other: # Voids 2 # Bowel Movements 0 Weight Source Bedscale Active Medications: Current Medications Diazepam (Valium) 5 mg PO TID [facility]; Protocol Stop: 05/30/18 13:59 Last Admin: 04/05/18 20:42 Dose: 5 mg Docusate Sodium (Colace) 100 mg PO BID [facility] Stop: 05/30/18 08:59 Last Admin: 04/05/18 17:59 Dose: Not Given Dextrose/Sodium Chloride (D5-0.45ns) 1,000 mls @ 50 mls/hr IV .Q20H [facility] Stop: 05/28/18 00:00 Last Admin: 04/05/18 14:22 Dose: 50 mls/hr Lorazepam (Ativan) 0.5 mg PO Q4HR PRN; Protocol PRN Reason: Agitation Stop: 06/02/18 14:21 Magnesium Hydroxide (Milk Of Magnesia) 30 ml PO HS PRN PRN Reason: Constipation Stop: 05/30/18 08:12 Mirtazapine (Remeron) 7.5 mg PO HS [facility]; Protocol Stop: 05/28/18 12:15 Last Admin: 04/05/18 20:42 Dose: 7.5 mg Ondansetron HCl (Zofran Odt) 4 mg PO Q6HR PRN PRN Reason: Nausea / Vomiting Stop: 05/28/18 16:04 Polyethylene Glycol (Miralax) 17 gm PO BID [facility] Stop: 05/28/18 16:59 Last Admin: 04/05/18 17:59 Dose: Not Given Quetiapine Fumarate (Seroquel) 25 mg PO Q6H PRN; Protocol PRN Reason: Agitation Stop: 05/28/18 16:04 Quetiapine Fumarate (Seroquel) 50 mg PO BID [facility]; Protocol Stop: 05/28/18 16:59 Last Admin: 04/05/18 17:59 Dose: 50 mg General: weak, demented HEENT: NC/AT, PERRLA Neck: Supple Lungs: CTAB Abdomen: distended (mildly) Neurological: unable to follow command, other (confused) Internal Medicine Assmt/Plan - Assessment Assessment: constipation altered mental status oa - Plan Plan: continue laxatives sitter for safety fall precautions continue current plan of care Nutritional Asmnt/Malnutr-PDOC - Dietary Evaluation Malnutrition Findings (Please click <Entered> for more info): Nutritional Asmnt/Malnutrition Start: 04/01/18 16: 56 Text: Status: Complete Freq: Protocol: Document 04/01/18 16:56 LCHENG (Rec: 04/01/18 17:13 LCKERRIG [email or web address]) Nutritional Asmnt/Malnutrition Patient General Information Nutritional Screening Moderate Risk Diagnosis altered mental status Pertinent Medical Hx/Surgical Hx degenerative psychosis Subjective Information Pt seen lying in bed at time of visit, confused. Per EMR, PO intake 100%. Per nurse pt had fical impaction and has BM now. Current Diet Order/ Nutrition Support regular Pertinent Medications D5-0.45ns, colace, remeron, miralax, seroquel Pertinent Labs 03/29 Na 135, glucose 363 04/01 POC 98 Nutritional Hx/Data Height 5 ft 4 in Height (Calculated Centimeters) 162.6 Current Weight (lbs) 108 lb Weight (Calculated Kilograms) 49.0 Weight (Calculated Grams) 26629.0 [place] Body Weight 120 Body Mass Index (BMI) 18.5 Weight Status Approriate GI Symptoms GI Symptoms None Last BM none per EMR Difficult in: None Skin Integrity/Comment: intact Current %PO Good (75-100%) Estimated Nutritional Goals BEE in Kcals: Using Current wt Calories/Kcals/Kg 25-30 Kcals Calculated 2044-7181 Protein: Using Current wt Protein g/k Protein Calculated 49 Fluid: ml 1225-1470ml (1ml/kcal) Nutritional Problem No current Nutrition Prob Problem N/A Intervention/Recommendation Comments 1. Continue with regular diet as ordered. 2. Monitor PO intake, wt, labs and skin integrity 3. F/U as low risk in 7 days, 04/08 Expected Outcomes/Goals Expected Outcomes/Goals 1. PO intake to meet at least 75% of nutritional needs. 2. Wt stability, skin to remain intact, labs to approach WNL.
--- NOTE | 2018-04-05 21:26 | Progress Notes ---
DATE: 04/05/2018 Case was discussed with staff of the patient, reviewed records. The patient apparently had to have mittens on her hand and 2 days ago apparently there was an order to be in restraints, which is to protect her. However, apparently the was concerned and wanted to talk to me yesterday and the nurse gave me the number to call; however, I did call that number. First time I got a full voice mail, no place to leave the message, but then I tried again and somebody answered me and it was the wrong number. She is concerned about her going to SNF with her needing restraints, so I discussed that with staff that may be she need to go to [facility] for a while, so she can be less agitated. She will covered on diazepam 5 mg 3 times a day. I have her on Remeron 7.5 mg at bedtime and seemed to have helped a little bit and also she was placed on Seroquel 25 mg every 6 hours as needed and 50 mg twice a day by Dr. Sotomayor, practitioner and no side effects with the medication. The patient may need to go to [facility]. Thank you very much for allowing me to participate in the care of this most interesting lady. JOB# [id number]
[2018-04-06] MEDS: POLYETHYLENE GLYCOL 3350 17 GM PACK PO SCH ×2 (09:09→17:34)
[2018-04-06] MEDS: D5-0.45NS 1,000 ML IV SCH (10:16)
--- NOTE | 2018-04-06 22:38 | Progress Notes ---
DATE: 04/06/2018 SUBJECTIVE: The patient was seen in her room. The patient is asleep, but easily arousable. The patient is a poor historian due to medical condition. Otherwise, the patient appears to be in no acute distress. OBJECTIVE: VITAL SIGNS: Temperature 97.4, heart rate 71, blood pressure 111/61, respirations 18, 97% on room air. HEENT: Head is atraumatic and normocephalic. Eyes: Bilateral conjunctivae are clear. Bilateral pupils equal and round and reactive. NECK: Supple. No JVD. CARDIOVASCULAR: S1 and S2 without murmur. PULMONARY: Clear to auscultation. GASTROINTESTINAL: Soft and nontender without guarding. Positive bowel sounds. MUSCULOSKELETAL: No clubbing. No cyanosis noted. ASSESSMENT: 1. Dementia. 2. Osteoarthritis. 3. Constipation. PLAN: We will continue current treatment. We will follow up with the psychiatrist to monitor the patient's condition and behavior: The patient may benefit if she will stay for the meantime in [facility] before going to the residential facility. Treatment plans will be discussed with Dr. Del Angel. Treatment plans were discussed with the patient's nurse. JOB# [id number]
[2018-04-07] MEDS: D5-0.45NS 1,000 ML IV SCH (05:00)
[2018-04-07] MEDS: POLYETHYLENE GLYCOL 3350 17 GM PACK PO SCH ×2 (09:42→16:56)
--- NOTE | 2018-04-07 12:24 | General Progress Note ---
Subjective - Review of Systems Events since last encounter: in no distress poor historian Objective - Results Result Diagrams: 03/29/18 11:26 03/29/18 11:26 Recent Labs: Laboratory Last Values WBC 5.8 Th/cmm (4.8-10.8) D 03/29/18 11:26 RBC 4.24 Mil/cmm (3.80-5.10) 03/29/18 11:26 Hgb 13.0 gm/dL (12-16) 03/29/18 11:26 Hct 38.6 % (41.0-60) L D 03/29/18 11:26 MCV 90.9 fl (81-100) 03/29/18 11:26 MCH 30.7 pg (27.0-31.0) 03/29/18 11:26 MCHC Differential 33.8 pg (28.0-36.0) 03/29/18 11:26 RDW 12.2 % (11.5-20.0) 03/29/18 11:26 Plt Count 226 Th/cmm (150-400) 03/29/18 11:26 MPV 8.6 fl 03/29/18 11:26 Neutrophils % 54.0 % (40.0-80.0) 03/29/18 11:26 Lymphocytes % 33.9 % (20.0-50.0) 03/29/18 11:26 Monocytes % 9.0 % (2.0-10.0) 03/29/18 11:26 Eosinophils % 3.0 % (0.0-5.0) 03/29/18 11:26 Basophils % 0.1 % (0.0-2.0) 03/29/18 11:26 Sodium 135 mEq/L (136-145) L 03/29/18 11:26 Potassium 3.8 mEq/L (3.5-5.1) 03/29/18 11:26 Chloride 104 mEq/L (98-107) 03/29/18 11:26 Carbon Dioxide 24.0 mEq/L (21.0-31.0) 03/29/18 11:26 Anion Gap 10.8 (7.0-16.0) 03/29/18 11:26 BUN 12 mg/dL (7-25) 03/29/18 11:26 Creatinine 0.7 mg/dL (0.6-1.2) 03/29/18 11:26 Est GFR ( Amer) > 60.0 ml/min (>90) 03/29/18 11:26 Est GFR (Non-Af Amer) > 60.0 ml/min 03/29/18 11:26 BUN/Creatinine Ratio 17.1 03/29/18 11:26 Glucose 363 mg/dL (70-105) H D 03/29/18 11:26 POC Glucose 98 MG/DL (70 - 105) 04/01/18 07:56 Calcium 8.4 mg/dL (8.6-10.3) L 03/29/18 11:26 Magnesium 2.3 mg/dL (1.9-2.7) 03/29/18 11:26 Total Bilirubin 0.8 mg/dL (0.3-1.0) 03/29/18 11:26 AST 17 U/L (13-39) 03/29/18 11:26 ALT 25 U/L (7-52) 03/29/18 11:26 Alkaline Phosphatase 58 U/L (34-104) 03/29/18 11:26 Total Protein 6.2 gm/dL (6.0-8.3) 03/29/18 11:26 Albumin 3.3 gm/dL (3.7-5.3) L 03/29/18 11:26 Globulin 2.9 gm/dL 03/29/18 11:26 Albumin/Globulin Ratio 1.1 (1.0-1.8) 03/29/18 11:26 Triglycerides 88 mg/dL (<150) 03/29/18 11:26 Cholesterol 168 mg/dL (<200) 03/29/18 11:26 LDL Cholesterol Direct 120 mg/dL (75-193) 03/29/18 11:26 HDL Cholesterol 31 mg/dL (23-92) 03/29/18 11:26 Urine Source CATH 03/30/18 10:05 Urine Color YELLOW 03/30/18 10:05 Urine Clarity CLEAR (CLEAR) 03/30/18 10:05 Urine pH 6.0 (4.6 - 8.0) 03/30/18 10:05 Ur Specific [place] 1.015 (1.005-1.030) 03/30/18 10:05 Urine Protein NEGATIVE mg/dL (NEGATIVE) 03/30/18 10:05 Urine Glucose (UA) NEGATIVE mg/dL (NEGATIVE) 03/30/18 10:05 Urine Ketones NEGATIVE mg/dL (NEGATIVE) 03/30/18 10:05 Urine Blood NEGATIVE (NEGATIVE) 03/30/18 10:05 Urine Nitrate NEGATIVE (NEGATIVE) 03/30/18 10:05 Urine Bilirubin NEGATIVE (NEGATIVE) 03/30/18 10:05 Urine Urobilinogen 0.2 E.U./dL (0.2 - 1.0) 03/30/18 10:05 Ur Leukocyte Esterase NEGATIVE (NEGATIVE) 03/30/18 10:05 Urine RBC 0-2 /hpf (0-5) 03/30/18 10:05 Urine WBC 0-2 /hpf (0-5) 03/30/18 10:05 Ur Epithelial Cells FEW /lpf (FEW) 03/30/18 10:05 Urine Bacteria OCCASIONAL /hpf (NONE SEEN) 03/30/18 10:05 - Physical Exam Vitals and I&O: Vital Signs Temp 97.7 F 04/07/18 06:00 Pulse 62 04/07/18 06:00 Resp 19 04/07/18 06:00 BP 107/68 04/07/18 06:00 Pulse Ox 98 04/07/18 04:00 Intake & Output 04/06/18 04/07/18 04/07/18 18:59 06:59 18:59 Intake Total 995 1236.667 Balance 995 1236.667 Weight (lbs) 50.802 kg Intake: Intake, IV Amount 995 936.667 D5-0.45NS 1,000 ml @ 50 995 936.667 mls/hr IV .Q20H [facility] Rx#: [id number] Oral 300 Other: # Voids 4 Stool Characteristics Formed Brown Weight Source Bedscale Active Medications: Current Medications Diazepam (Valium) 5 mg PO TID [facility]; Protocol Stop: 05/30/18 13:59 Last Admin: 04/07/18 09:42 Dose: 5 mg Docusate Sodium (Colace) 100 mg PO BID [facility] Stop: 05/30/18 08:59 Last Admin: 04/07/18 09:42 Dose: 100 mg Dextrose/Sodium Chloride (D5-0.45ns) 1,000 mls @ 50 mls/hr IV .Q20H [facility] Stop: 05/28/18 00:00 Last Admin: 04/07/18 05:00 Dose: 50 mls/hr Lorazepam (Ativan) 0.5 mg PO Q4HR PRN; Protocol PRN Reason: Agitation Stop: 06/02/18 14:21 Last Admin: 04/07/18 02:14 Dose: 0.5 mg Magnesium Hydroxide (Milk Of Magnesia) 30 ml PO HS PRN PRN Reason: Constipation Stop: 05/30/18 08:12 Mirtazapine (Remeron) 7.5 mg PO HS [facility]; Protocol Stop: 05/28/18 12:15 Last Admin: 04/06/18 21:24 Dose: 7.5 mg Ondansetron HCl (Zofran Odt) 4 mg PO Q6HR PRN PRN Reason: Nausea / Vomiting Stop: 05/28/18 16:04 Polyethylene Glycol (Miralax) 17 gm PO BID [facility] Stop: 05/28/18 16:59 Last Admin: 04/07/18 09:42 Dose: 17 gm Quetiapine Fumarate (Seroquel) 25 mg PO Q6H PRN; Protocol PRN Reason: Agitation Stop: 05/28/18 16:04 Quetiapine Fumarate (Seroquel) 50 mg PO BID [facility]; Protocol Stop: 05/28/18 16:59 Last Admin: 04/07/18 09:42 Dose: 50 mg General: No acute distress HEENT: Atraumatic Neck: Supple Cardiovascular: Regular rate, Normal S1, Normal S2 Lungs: Clear to auscultation Assessment/Plan - Problem List Patient Problems: All Active Problems Altered mental state (Acute) R41.82 Constipation (Acute) K59.00 Osteoarthritis (Acute) M19.90 - Plan Plan: as per order sheet Nutritional Asmnt/Malnutr-PDOC - Dietary Evaluation Malnutrition Findings (Please click <Entered> for more info): Nutritional Asmnt/Malnutrition Start: 04/01/18 16: 56 Text: Status: Complete Freq: Protocol: Document 04/01/18 16:56 [email or web address] (Rec: 04/01/18 17:13 DOUG [email or web address]) Nutritional Asmnt/Malnutrition Patient General Information Nutritional Screening Moderate Risk Diagnosis altered mental status Pertinent Medical Hx/Surgical Hx degenerative psychosis Subjective Information Pt seen lying in bed at time of visit, confused. Per EMR, PO intake 100%. Per nurse pt had fical impaction and has BM now. Current Diet Order/ Nutrition Support regular Pertinent Medications D5-0.45ns, colace, remeron, miralax, seroquel Pertinent Labs 03/29 Na 135, glucose 363 04/01 POC 98 Nutritional Hx/Data Height 1.63 m Height (Calculated Centimeters) 162.6 Current Weight (lbs) 48.988 kg Weight (Calculated Kilograms) 49.0 Weight (Calculated Grams) 76524.0 [place] Body Weight 120 Body Mass Index (BMI) 18.5 Weight Status Approriate GI Symptoms GI Symptoms None Last BM none per EMR Difficult in: None Skin Integrity/Comment: intact Current %PO Good (75-100%) Estimated Nutritional Goals BEE in Kcals: Using Current wt Calories/Kcals/Kg 25-30 Kcals Calculated 9128-7021 Protein: Using Current wt Protein g/k Protein Calculated 49 Fluid: ml 1225-1470ml (1ml/kcal) Nutritional Problem No current Nutrition Prob Problem N/A Intervention/Recommendation Comments 1. Continue with regular diet as ordered. 2. Monitor PO intake, wt, labs and skin integrity 3. F/U as low risk in 7 days, 04/08 Expected Outcomes/Goals Expected Outcomes/Goals 1. PO intake to meet at least 75% of nutritional needs. 2. Wt stability, skin to remain intact, labs to approach WNL.
[2018-04-08] MEDS: D5-0.45NS 1,000 ML IV SCH (01:56)
[2018-04-08] MEDS: POLYETHYLENE GLYCOL 3350 17 GM PACK PO SCH ×2 (09:04→16:15)
--- NOTE | 2018-04-08 16:00 | General Progress Note ---
Subjective - Review of Systems Events since last encounter: in no distress Objective - Results Result Diagrams: 03/29/18 11:26 03/29/18 11:26 Recent Labs: Laboratory Last Values WBC 5.8 Th/cmm (4.8-10.8) D 03/29/18 11:26 RBC 4.24 Mil/cmm (3.80-5.10) 03/29/18 11:26 Hgb 13.0 gm/dL (12-16) 03/29/18 11:26 Hct 38.6 % (41.0-60) L D 03/29/18 11:26 MCV 90.9 fl (81-100) 03/29/18 11:26 MCH 30.7 pg (27.0-31.0) 03/29/18 11:26 MCHC Differential 33.8 pg (28.0-36.0) 03/29/18 11:26 RDW 12.2 % (11.5-20.0) 03/29/18 11:26 Plt Count 226 Th/cmm (150-400) 03/29/18 11:26 MPV 8.6 fl 03/29/18 11:26 Neutrophils % 54.0 % (40.0-80.0) 03/29/18 11:26 Lymphocytes % 33.9 % (20.0-50.0) 03/29/18 11:26 Monocytes % 9.0 % (2.0-10.0) 03/29/18 11:26 Eosinophils % 3.0 % (0.0-5.0) 03/29/18 11:26 Basophils % 0.1 % (0.0-2.0) 03/29/18 11:26 Sodium 135 mEq/L (136-145) L 03/29/18 11:26 Potassium 3.8 mEq/L (3.5-5.1) 03/29/18 11:26 Chloride 104 mEq/L (98-107) 03/29/18 11:26 Carbon Dioxide 24.0 mEq/L (21.0-31.0) 03/29/18 11:26 Anion Gap 10.8 (7.0-16.0) 03/29/18 11:26 BUN 12 mg/dL (7-25) 03/29/18 11:26 Creatinine 0.7 mg/dL (0.6-1.2) 03/29/18 11:26 Est GFR ( Amer) > 60.0 ml/min (>90) 03/29/18 11:26 Est GFR (Non-Af Amer) > 60.0 ml/min 03/29/18 11:26 BUN/Creatinine Ratio 17.1 03/29/18 11:26 Glucose 363 mg/dL (70-105) H D 03/29/18 11:26 POC Glucose 98 MG/DL (70 - 105) 04/01/18 07:56 Calcium 8.4 mg/dL (8.6-10.3) L 03/29/18 11:26 Magnesium 2.3 mg/dL (1.9-2.7) 03/29/18 11:26 Total Bilirubin 0.8 mg/dL (0.3-1.0) 03/29/18 11:26 AST 17 U/L (13-39) 03/29/18 11:26 ALT 25 U/L (7-52) 03/29/18 11:26 Alkaline Phosphatase 58 U/L (34-104) 03/29/18 11:26 Total Protein 6.2 gm/dL (6.0-8.3) 03/29/18 11:26 Albumin 3.3 gm/dL (3.7-5.3) L 03/29/18 11:26 Globulin 2.9 gm/dL 03/29/18 11:26 Albumin/Globulin Ratio 1.1 (1.0-1.8) 03/29/18 11:26 Triglycerides 88 mg/dL (<150) 03/29/18 11:26 Cholesterol 168 mg/dL (<200) 03/29/18 11:26 LDL Cholesterol Direct 120 mg/dL (75-193) 03/29/18 11:26 HDL Cholesterol 31 mg/dL (23-92) 03/29/18 11:26 Urine Source CATH 03/30/18 10:05 Urine Color YELLOW 03/30/18 10:05 Urine Clarity CLEAR (CLEAR) 03/30/18 10:05 Urine pH 6.0 (4.6 - 8.0) 03/30/18 10:05 Ur Specific [place] 1.015 (1.005-1.030) 03/30/18 10:05 Urine Protein NEGATIVE mg/dL (NEGATIVE) 03/30/18 10:05 Urine Glucose (UA) NEGATIVE mg/dL (NEGATIVE) 03/30/18 10:05 Urine Ketones NEGATIVE mg/dL (NEGATIVE) 03/30/18 10:05 Urine Blood NEGATIVE (NEGATIVE) 03/30/18 10:05 Urine Nitrate NEGATIVE (NEGATIVE) 03/30/18 10:05 Urine Bilirubin NEGATIVE (NEGATIVE) 03/30/18 10:05 Urine Urobilinogen 0.2 E.U./dL (0.2 - 1.0) 03/30/18 10:05 Ur Leukocyte Esterase NEGATIVE (NEGATIVE) 03/30/18 10:05 Urine RBC 0-2 /hpf (0-5) 03/30/18 10:05 Urine WBC 0-2 /hpf (0-5) 03/30/18 10:05 Ur Epithelial Cells FEW /lpf (FEW) 03/30/18 10:05 Urine Bacteria OCCASIONAL /hpf (NONE SEEN) 03/30/18 10:05 - Physical Exam Vitals and I&O: Vital Signs Temp 98.2 F 04/08/18 15:52 Pulse 84 04/08/18 15:52 Resp 16 04/08/18 15:52 BP 120/65 04/08/18 15:52 Pulse Ox 98 04/08/18 04:00 Intake & Output 04/07/18 04/08/18 04/08/18 18:59 06:59 18:59 Intake Total 600 1000 Balance 600 1000 Weight (lbs) 50.802 kg Intake: Intake, IV Amount 1000 D5-0.45NS 1,000 ml @ 50 1000 mls/hr IV .Q20H [facility] Rx#: [id number] Oral 600 Other: # Voids 4 Weight Source Bedscale Active Medications: Current Medications Diazepam (Valium) 5 mg PO TID [facility]; Protocol Stop: 05/30/18 13:59 Last Admin: 04/08/18 15:04 Dose: 5 mg Docusate Sodium (Colace) 100 mg PO BID [facility] Stop: 05/30/18 08:59 Last Admin: 04/08/18 09:04 Dose: 100 mg Dextrose/Sodium Chloride (D5-0.45ns) 1,000 mls @ 50 mls/hr IV .Q20H [facility] Stop: 05/28/18 00:00 Last Admin: 04/08/18 01:56 Dose: 50 mls/hr Magnesium Hydroxide (Milk Of Magnesia) 30 ml PO HS PRN PRN Reason: Constipation Stop: 05/30/18 08:12 Mirtazapine (Remeron) 7.5 mg PO HS [facility]; Protocol Stop: 05/28/18 12:15 Last Admin: 04/07/18 21:20 Dose: 7.5 mg Ondansetron HCl (Zofran Odt) 4 mg PO Q6HR PRN PRN Reason: Nausea / Vomiting Stop: 05/28/18 16:04 Polyethylene Glycol (Miralax) 17 gm PO BID [facility] Stop: 05/28/18 16:59 Last Admin: 04/08/18 09:04 Dose: 17 gm Quetiapine Fumarate (Seroquel) 25 mg PO Q6H PRN; Protocol PRN Reason: Agitation Stop: 05/28/18 16:04 Quetiapine Fumarate (Seroquel) 50 mg PO BID [facility]; Protocol Stop: 05/28/18 16:59 Last Admin: 04/08/18 09:04 Dose: 50 mg General: No acute distress HEENT: Atraumatic Neck: Supple Cardiovascular: Regular rate, Normal S1, Normal S2 Lungs: Clear to auscultation Assessment/Plan - Problem List Patient Problems: All Active Problems Altered mental state (Acute) R41.82 Constipation (Acute) K59.00 Osteoarthritis (Acute) M19.90 - Plan Plan: as per order sheet Nutritional Asmnt/Malnutr-PDOC - Dietary Evaluation Malnutrition Findings (Please click <Entered> for more info): Nutritional Asmnt/Malnutrition Start: 04/01/18 16: 56 Text: Status: Complete Freq: Protocol: Document 04/01/18 16:56 LCHENG (Rec: 04/01/18 17:13 LCHENG [email or web address]) Nutritional Asmnt/Malnutrition Patient General Information Nutritional Screening Moderate Risk Diagnosis altered mental status Pertinent Medical Hx/Surgical Hx degenerative psychosis Subjective Information Pt seen lying in bed at time of visit, confused. Per EMR, PO intake 100%. Per nurse pt had fical impaction and has BM now. Current Diet Order/ Nutrition Support regular Pertinent Medications D5-0.45ns, colace, remeron, miralax, seroquel Pertinent Labs 03/29 Na 135, glucose 363 04/01 POC 98 Nutritional Hx/Data Height 1.63 m Height (Calculated Centimeters) 162.6 Current Weight (lbs) 48.988 kg Weight (Calculated Kilograms) 49.0 Weight (Calculated Grams) 06253.0 [place] Body Weight 120 Body Mass Index (BMI) 18.5 Weight Status Approriate GI Symptoms GI Symptoms None Last BM none per EMR Difficult in: None Skin Integrity/Comment: intact Current %PO Good (75-100%) Estimated Nutritional Goals BEE in Kcals: Using Current wt Calories/Kcals/Kg 25-30 Kcals Calculated 9081-3885 Protein: Using Current wt Protein g/k Protein Calculated 49 Fluid: ml 1225-1470ml (1ml/kcal) Nutritional Problem No current Nutrition Prob Problem N/A Intervention/Recommendation Comments 1. Continue with regular diet as ordered. 2. Monitor PO intake, wt, labs and skin integrity 3. F/U as low risk in 7 days, 04/08 Expected Outcomes/Goals Expected Outcomes/Goals 1. PO intake to meet at least 75% of nutritional needs. 2. Wt stability, skin to remain intact, labs to approach WNL.
--- NOTE | 2018-04-08 20:56 | Progress Notes ---
DATE: 04/08/2018 Case was discussed with staff of the patient, reviewed records. The patient continues to be unable to participate in a meaningful conversation or make safe plan for self-care. Continues to be unpredictable and impulsive. Her is concern about her going to a SNF facility and she is in the process of getting moved to [facility] and no side effects of the medication, no sedation, no nausea, no extrapyramidal symptoms. Thank you very much for allowing me to participate in the care of this most interesting lady. JOB# [id number]
[2018-04-09] MEDS: POLYETHYLENE GLYCOL 3350 17 GM PACK PO SCH ×2 (08:39→17:09)
--- NOTE | 2018-04-09 13:21 | Internal Medicine Prog Note ---
Internal Medicine Subjective - Subjective Service Date: 04/09/18 Patient is:: awake (\), confused (\\\\\\\\\\) Per staff patient has:: no adverse event Internal Medicine Objective - Results Result Diagrams: 03/29/18 11:26 03/29/18 11:26 Recent Labs: Laboratory Last Values WBC 5.8 Th/cmm (4.8-10.8) D 03/29/18 11:26 RBC 4.24 Mil/cmm (3.80-5.10) 03/29/18 11:26 Hgb 13.0 gm/dL (12-16) 03/29/18 11:26 Hct 38.6 % (41.0-60) L D 03/29/18 11:26 MCV 90.9 fl (81-100) 03/29/18 11:26 MCH 30.7 pg (27.0-31.0) 03/29/18 11:26 MCHC Differential 33.8 pg (28.0-36.0) 03/29/18 11:26 RDW 12.2 % (11.5-20.0) 03/29/18 11:26 Plt Count 226 Th/cmm (150-400) 03/29/18 11:26 MPV 8.6 fl 03/29/18 11:26 Neutrophils % 54.0 % (40.0-80.0) 03/29/18 11:26 Lymphocytes % 33.9 % (20.0-50.0) 03/29/18 11:26 Monocytes % 9.0 % (2.0-10.0) 03/29/18 11:26 Eosinophils % 3.0 % (0.0-5.0) 03/29/18 11:26 Basophils % 0.1 % (0.0-2.0) 03/29/18 11:26 Sodium 135 mEq/L (136-145) L 03/29/18 11:26 Potassium 3.8 mEq/L (3.5-5.1) 03/29/18 11:26 Chloride 104 mEq/L (98-107) 03/29/18 11:26 Carbon Dioxide 24.0 mEq/L (21.0-31.0) 03/29/18 11:26 Anion Gap 10.8 (7.0-16.0) 03/29/18 11:26 BUN 12 mg/dL (7-25) 03/29/18 11:26 Creatinine 0.7 mg/dL (0.6-1.2) 03/29/18 11:26 Est GFR ( Amer) > 60.0 ml/min (>90) 03/29/18 11:26 Est GFR (Non-Af Amer) > 60.0 ml/min 03/29/18 11:26 BUN/Creatinine Ratio 17.1 03/29/18 11:26 Glucose 363 mg/dL (70-105) H D 03/29/18 11:26 POC Glucose 98 MG/DL (70 - 105) 04/01/18 07:56 Calcium 8.4 mg/dL (8.6-10.3) L 03/29/18 11:26 Magnesium 2.3 mg/dL (1.9-2.7) 03/29/18 11:26 Total Bilirubin 0.8 mg/dL (0.3-1.0) 03/29/18 11:26 AST 17 U/L (13-39) 03/29/18 11:26 ALT 25 U/L (7-52) 03/29/18 11:26 Alkaline Phosphatase 58 U/L (34-104) 03/29/18 11:26 Total Protein 6.2 gm/dL (6.0-8.3) 03/29/18 11:26 Albumin 3.3 gm/dL (3.7-5.3) L 03/29/18 11:26 Globulin 2.9 gm/dL 03/29/18 11:26 Albumin/Globulin Ratio 1.1 (1.0-1.8) 03/29/18 11:26 Triglycerides 88 mg/dL (<150) 03/29/18 11:26 Cholesterol 168 mg/dL (<200) 03/29/18 11:26 LDL Cholesterol Direct 120 mg/dL (75-193) 03/29/18 11:26 HDL Cholesterol 31 mg/dL (23-92) 03/29/18 11:26 Urine Source CATH 03/30/18 10:05 Urine Color YELLOW 03/30/18 10:05 Urine Clarity CLEAR (CLEAR) 03/30/18 10:05 Urine pH 6.0 (4.6 - 8.0) 03/30/18 10:05 Ur Specific [place] 1.015 (1.005-1.030) 03/30/18 10:05 Urine Protein NEGATIVE mg/dL (NEGATIVE) 03/30/18 10:05 Urine Glucose (UA) NEGATIVE mg/dL (NEGATIVE) 03/30/18 10:05 Urine Ketones NEGATIVE mg/dL (NEGATIVE) 03/30/18 10:05 Urine Blood NEGATIVE (NEGATIVE) 03/30/18 10:05 Urine Nitrate NEGATIVE (NEGATIVE) 03/30/18 10:05 Urine Bilirubin NEGATIVE (NEGATIVE) 03/30/18 10:05 Urine Urobilinogen 0.2 E.U./dL (0.2 - 1.0) 03/30/18 10:05 Ur Leukocyte Esterase NEGATIVE (NEGATIVE) 03/30/18 10:05 Urine RBC 0-2 /hpf (0-5) 03/30/18 10:05 Urine WBC 0-2 /hpf (0-5) 03/30/18 10:05 Ur Epithelial Cells FEW /lpf (FEW) 03/30/18 10:05 Urine Bacteria OCCASIONAL /hpf (NONE SEEN) 03/30/18 10:05 - Physical Exam Vitals and I&O: Vital Signs Temp 98.1 F 04/09/18 03:45 Pulse 77 04/09/18 03:45 Resp 17 04/09/18 08:00 BP 127/86 04/09/18 03:45 Pulse Ox 98 04/09/18 03:45 Intake & Output 04/08/18 04/09/18 04/09/18 18:59 06:59 18:59 Intake Total 1600 Balance 1600 Weight (lbs) 112 lb Intake: Oral 1600 Other: # Voids 3 # Bowel Movements 1 Stool Characteristics Formed Brown Weight Source Bedscale Active Medications: Current Medications Diazepam (Valium) 5 mg PO TID [facility]; Protocol Stop: 05/30/18 13:59 Last Admin: 04/09/18 08:39 Dose: 5 mg Docusate Sodium (Colace) 100 mg PO BID [facility] Stop: 05/30/18 08:59 Last Admin: 04/09/18 08:39 Dose: 100 mg Dextrose/Sodium Chloride (D5-0.45ns) 1,000 mls @ 50 mls/hr IV .Q20H [facility] Stop: 05/28/18 00:00 Last Admin: 04/08/18 01:56 Dose: 50 mls/hr Magnesium Hydroxide (Milk Of Magnesia) 30 ml PO HS PRN PRN Reason: Constipation Stop: 05/30/18 08:12 Mirtazapine (Remeron) 7.5 mg PO HS [facility]; Protocol Stop: 05/28/18 12:15 Last Admin: 04/08/18 21:04 Dose: 7.5 mg Ondansetron HCl (Zofran Odt) 4 mg PO Q6HR PRN PRN Reason: Nausea / Vomiting Stop: 05/28/18 16:04 Polyethylene Glycol (Miralax) 17 gm PO BID [facility] Stop: 05/28/18 16:59 Last Admin: 04/09/18 08:39 Dose: 17 gm Quetiapine Fumarate (Seroquel) 25 mg PO Q6H [facility]; Protocol PRN Reason: Agitation Stop: 05/28/18 16:04 Quetiapine Fumarate (Seroquel) 50 mg PO BID [facility]; Protocol Stop: 05/28/18 16:59 Last Admin: 04/09/18 08:39 Dose: 50 mg General: weak, demented HEENT: NC/AT, PERRLA Neck: Supple Lungs: CTAB Abdomen: distended (mildly) Neurological: unable to follow command, other (confused) Internal Medicine Assmt/Plan - Assessment Assessment: constipation altered mental status oa - Plan Plan: continue laxatives sitter for safety fall precautions continue current plan of care Nutritional Asmnt/Malnutr-PDOC - Dietary Evaluation Malnutrition Findings (Please click <Entered> for more info): Nutritional Asmnt/Malnutrition Start: 04/01/18 16: 56 Text: Status: Complete Freq: Protocol: Document 04/01/18 16:56 LCHENG (Rec: 04/01/18 17:13 LCHENG [email or web address]) Nutritional Asmnt/Malnutrition Patient General Information Nutritional Screening Moderate Risk Diagnosis altered mental status Pertinent Medical Hx/Surgical Hx degenerative psychosis Subjective Information Pt seen lying in bed at time of visit, confused. Per EMR, PO intake 100%. Per nurse pt had fical impaction and has BM now. Current Diet Order/ Nutrition Support regular Pertinent Medications D5-0.45ns, colace, remeron, miralax, seroquel Pertinent Labs 03/29 Na 135, glucose 363 04/01 POC 98 Nutritional Hx/Data Height 5 ft 4 in Height (Calculated Centimeters) 162.6 Current Weight (lbs) 108 lb Weight (Calculated Kilograms) 49.0 Weight (Calculated Grams) 37261.0 [place] Body Weight 120 Body Mass Index (BMI) 18.5 Weight Status Approriate GI Symptoms GI Symptoms None Last BM none per EMR Difficult in: None Skin Integrity/Comment: intact Current %PO Good (75-100%) Estimated Nutritional Goals BEE in Kcals: Using Current wt Calories/Kcals/Kg 25-30 Kcals Calculated 7015-5331 Protein: Using Current wt Protein g/k Protein Calculated 49 Fluid: ml 1225-1470ml (1ml/kcal) Nutritional Problem No current Nutrition Prob Problem N/A Intervention/Recommendation Comments 1. Continue with regular diet as ordered. 2. Monitor PO intake, wt, labs and skin integrity 3. F/U as low risk in 7 days, 04/08 Expected Outcomes/Goals Expected Outcomes/Goals 1. PO intake to meet at least 75% of nutritional needs. 2. Wt stability, skin to remain intact, labs to approach WNL.
--- NOTE | 2018-04-23 00:27 | Discharge Summary ---
DATE OF DISCHARGE: 04/09/2018 HOSPITAL COURSE: The patient was admitted to the hospital initially on 03/28/2018 and was discharged on 04/09/2018. Initially was admitted to medical floor, later on to the Geropsych Unit, 62-year-old female patient. The patient was very confused, agitated, and the patient's initial diagnoses was altered mental status, increasing Alzheimer's disease, and agitation. I followed the patient's medical problems. Eventually, the patient improved and the patient was in stable condition on 04/09/2018, the patient was discharged to [facility] where I will be following the patient. CONDITION AT THE TIME OF DISCHARGE: Stable. DIAGNOSES: Dementia and psychosis. [facility]# [id number]
== END 2018-04-09 17:10 | DRG 70 ==
LOC: ER 21:46 → MSI 23:15
PROVIDERS: ADMIT Internal Medicine; ATTEND Internal Medicine
DX: G93.40 Encephalopathy, unspecified (principal); E41 Nutritional marasmus; Z68.1 Body mass index [BMI] 19.9 or less, adult; G30.9 Alzheimer's disease, unspecified; K59.00 Constipation, unspecified; M19.90 Unspecified osteoarthritis, unspecified site; Z66 Do not resuscitate; F02.80 Dementia in other diseases classified elsewhere, unspecified severity, without behavioral disturbance, psychotic disturbance, mood disturbance, and anxiety; F32.9 Major depressive disorder, single episode, unspecified; F29 Unspecified psychosis not due to a substance or known physiological condition; Z88.0 Allergy status to penicillin
CPT/HCPCS: 36415-UA; 70450-TC; 80053-TC; 80061-TC; 81001-TC; 82948-90; 83036-90; 83735-TC; 85025-TC; 96374; J1200; J2060; Z7610

== ENCOUNTER 2018-04-09 17:38 | Inpatient (IN) | payer MEDICARE, BC ==
[2018-04-09 18:43] VITALS: BP 114/66
--- NOTE | 2018-04-09 21:24 | Progress Notes ---
DATE: 04/09/2018 SUBJECTIVE: Case was discussed with staff of the patient and reviewed records. The patient continues to be unpredictable, impulsive, needing redirection, yelling and screaming. She has ____. She is unpredictable, impulsive, continues to have poor insight. She is on Seroquel as needed and Remeron 7.5 mg at bedtime and regular dose Seroquel 50 mg twice a day. The patient may need to go to [facility] when medically cleared, if she is still acting out. Thank you very much for allowing me to participate in the care of this most interesting lady. JOB# [id number]
[2018-04-09] MEDS ORDERED: Magnesium Hydroxide (MOM) 30 mL UDC PO PRN (22:08)
[2018-04-10] MEDS: POLYETHYLENE GLYCOL 3350 17 GM PACK PO SCH ×3 (09:15→17:32)
[2018-04-10 12:20] LABS: CHOLESTEROL 160 mg/dL (<200); HDL -HIGH DENSITY LIPOPROTEIN 35 mg/dL (23-92); TRIGLYCERIDES 108 mg/dL (<150)
--- NOTE | 2018-04-10 16:44 | History and Physical ---
History of Present Illness - HPI Vital Signs: Last Vital Signs Temp 97.0 F 04/10/18 14:00 Pulse 59 04/10/18 14:00 Resp 20 04/10/18 14:00 BP 105/62 04/10/18 14:00 Pulse Ox 95 04/10/18 14:00 Family Medical History - Family Member Mother History Unknown: Yes Ethnicity: Non- Living Status: Unknown - Medications Home Medications: Home Medication Medication Instructions Recorded Type Ondansetron [Zofran Odt] 4 mg PO Q6HR PRN 03/28/18 History Diazepam [Valium*] 5 mg PO TID tab 04/09/18 Rx Docusate Sodium [Colace] 100 mg PO BID cap 04/09/18 Rx Magnesium Hydroxide [Milk of 30 ml PO HS PRN udc 04/09/18 Rx Magnesia] Mirtazapine [Remeron] 7.5 mg PO HS tab 04/09/18 Rx Polyethylene Glycol 3350 [Miralax] 17 gm PO BID pack 04/09/18 Rx QUEtiapine Fumarate [SEROquel] 25 mg PO Q6H PRN tab 04/09/18 Rx QUEtiapine Fumarate [SEROquel] 50 mg PO BID tab 04/09/18 Rx - Allergies Allergies/Adverse Reactions: Allergies Allergy/AdvReac Type Severity Reaction Status Date / Time Penicillins [PCN] Allergy Verified 03/28/18 21:51 - Lab Results All Lab Results last 24 hours: Laboratory Results - last 24 hr 04/09/18 04/10/18 19:22 11:47 POC Glucose 112 H Triglycerides 108 Cholesterol 160 LDL Cholesterol Direct 114 HDL Cholesterol 35
[2018-04-11] MEDS: POLYETHYLENE GLYCOL 3350 17 GM PACK PO SCH ×2 (09:20→17:48)
--- NOTE | 2018-04-11 10:40 | General Progress Note ---
Subjective - Review of Systems Events since last encounter: patient awake alert disorganized , unpredictable confused Objective - Results Recent Labs: Laboratory Last Values POC Glucose 112 MG/DL (70 - 105) H 04/09/18 19:22 Triglycerides 108 mg/dL (<150) 04/10/18 11:47 Cholesterol 160 mg/dL (<200) 04/10/18 11:47 LDL Cholesterol Direct 114 mg/dL (75-193) 04/10/18 11:47 HDL Cholesterol 35 mg/dL (23-92) 04/10/18 11:47 - Physical Exam Vitals and I&O: Vital Signs Temp 97.9 F 04/11/18 06:47 Pulse 71 04/11/18 06:47 Resp 19 04/11/18 06:47 BP 130/71 04/11/18 06:47 Pulse Ox 99 04/11/18 06:47 Intake & Output 04/10/18 04/11/18 04/11/18 18:59 06:59 18:59 Intake Total 1200 120 Balance 1200 120 Intake: Oral 1200 120 Other: # Voids 3 # Bowel Movements 1 1 Stool Characteristics Soft Soft Formed Formed Active Medications: Current Medications Diazepam (Valium) 5 mg PO TID [facility]; Protocol Stop: 06/09/18 08:59 Last Admin: 04/11/18 09:19 Dose: 5 mg Docusate Sodium (Colace) 100 mg PO BID NITO Stop: 06/09/18 08:59 Last Admin: 04/11/18 09:20 Dose: 100 mg Lorazepam (Ativan) 0.5 mg PO Q4HR PRN; Protocol PRN Reason: Anxiety Stop: 05/09/18 15:59 Last Admin: 04/11/18 09:19 Dose: 0.5 mg Magnesium Hydroxide (Milk Of Magnesia) 30 ml PO HS PRN PRN Reason: Constipation Stop: 06/08/18 22:07 Mirtazapine (Remeron) 7.5 mg PO HS NITO; Protocol Stop: 06/09/18 20:59 Last Admin: 04/10/18 21:03 Dose: 7.5 mg Ondansetron HCl (Zofran Odt) 4 mg PO Q6HR PRN PRN Reason: Nausea / Vomiting Stop: 06/08/18 22:07 Polyethylene Glycol (Miralax) 17 gm PO BID NITO Stop: 06/09/18 08:59 Last Admin: 04/11/18 09:20 Dose: 17 gm Quetiapine Fumarate (Seroquel) 25 mg PO Q6H PRN; Protocol PRN Reason: Agitation Stop: 06/08/18 21:49 Last Admin: 04/10/18 06:04 Dose: 25 mg Quetiapine Fumarate (Seroquel) 50 mg PO BID NITO; Protocol Stop: 06/09/18 08:59 Last Admin: 04/11/18 09:19 Dose: 50 mg
[2018-04-12] MEDS: POLYETHYLENE GLYCOL 3350 17 GM PACK PO SCH ×2 (08:32→16:00)
--- NOTE | 2018-04-12 12:44 | Internal Medicine Prog Note ---
Internal Medicine Subjective - Subjective Service Date: 04/12/18 Patient seen and examined:: with staff Patient is:: awake, confused Per staff patient has:: tolerating meds Internal Medicine Objective - Results Recent Labs: Laboratory Last Values POC Glucose 112 MG/DL (70 - 105) H 04/09/18 19:22 Triglycerides 108 mg/dL (<150) 04/10/18 11:47 Cholesterol 160 mg/dL (<200) 04/10/18 11:47 LDL Cholesterol Direct 114 mg/dL (75-193) 04/10/18 11:47 HDL Cholesterol 35 mg/dL (23-92) 04/10/18 11:47 - Physical Exam Vitals and I&O: Vital Signs Temp 96.6 F 04/12/18 06:05 Pulse 63 04/12/18 06:05 Resp 20 04/12/18 06:05 BP 115/58 04/12/18 06:05 Pulse Ox 100 04/12/18 06:05 Intake & Output 04/11/18 04/12/18 04/12/18 18:59 06:59 18:59 Intake Total 1200 Balance 1200 Intake: Oral 1200 Other: # Bowel Movements 1 Stool Characteristics Soft Soft Soft Formed Formed Formed Active Medications: Current Medications Diazepam (Valium) 5 mg PO TID [facility]; Protocol Stop: 06/09/18 08:59 Last Admin: 04/12/18 08:31 Dose: 5 mg Docusate Sodium (Colace) 100 mg PO BID NITO Stop: 06/09/18 08:59 Last Admin: 04/12/18 08:31 Dose: 100 mg Lorazepam (Ativan) 0.5 mg PO Q4HR PRN; Protocol PRN Reason: Anxiety Stop: 05/09/18 15:59 Last Admin: 04/11/18 09:19 Dose: 0.5 mg Magnesium Hydroxide (Milk Of Magnesia) 30 ml PO HS PRN PRN Reason: Constipation Stop: 06/08/18 22:07 Mirtazapine (Remeron) 7.5 mg PO HS NITO; Protocol Stop: 06/09/18 20:59 Last Admin: 04/11/18 21:41 Dose: Not Given Ondansetron HCl (Zofran Odt) 4 mg PO Q6HR PRN PRN Reason: Nausea / Vomiting Stop: 06/08/18 22:07 Polyethylene Glycol (Miralax) 17 gm PO BID NITO Stop: 06/09/18 08:59 Last Admin: 04/12/18 08:32 Dose: 17 gm Quetiapine Fumarate (Seroquel) 25 mg PO Q6H PRN; Protocol PRN Reason: Agitation Stop: 06/08/18 21:49 Last Admin: 04/10/18 06:04 Dose: 25 mg Quetiapine Fumarate (Seroquel) 50 mg PO BID NITO; Protocol Stop: 06/09/18 08:59 Last Admin: 04/12/18 08:31 Dose: 50 mg General: alert HEENT: NC/AT, PERRLA Neck: Supple Lungs: CTAB Cardiovascular: RRR, Normal S1, Normal S2, without murmur Abdomen: soft, non-tender, non-distended, positive bowel sound Neurological: alert Internal Medicine Assmt/Plan - Assessment Assessment: os psychosis - Plan Plan: fall precautions continue current plan of care Nutritional Asmnt/Malnutr-PDOC - Dietary Evaluation Malnutrition Findings (Please click <Entered> for more info): Nutritional Asmnt/Malnutrition Start: 04/12/18 11: 48 Text: Status: Complete Freq: Protocol: Document 04/12/18 11:49 DARSHANA (Rec: 04/12/18 11:59 DARSHANA [id number]) Nutritional Asmnt/Malnutrition Patient General Information Nutritional Screening Moderate Risk Diagnosis psychosis Pertinent Medical Hx/Surgical Hx degenerative psychosis Subjective Information Pt was seen sleeping in bed at time of visit. Per EMR, PO intake 100%. Current Diet Order/ Nutrition Support Regular Pertinent Medications colace, remeron, seroquel Pertinent Labs 04/09 POC 112 Nutritional Hx/Data Height 5 ft 4 in Height (Calculated Centimeters) 162.6 Current Weight (lbs) 112 lb Weight (Calculated Kilograms) 50.8 Weight (Calculated Grams) 11309.3 [place] Body Weight 120 Body Mass Index (BMI) 19.2 Weight Status Approriate GI Symptoms GI Symptoms None Last BM 04/11 Difficult in: None Skin Integrity/Comment: redness of skin Current %PO Good (75-100%) Estimated Nutritional Goals BEE in Kcals: Using Current wt Calories/Kcals/Kg 25-30 Kcals Calculated 7901-6215 Protein: Using Current wt Protein g/k.8-1 Protein Calculated 40-51 g Fluid: ml 6020-5103 (1 ml/kcal) Nutritional Problem No current Nutrition Prob Problem N/A Malnutrition Alert Is there a minimum of two criteria No selected? Query Text:Check all the applicable criteria. A minimum of two criteria are recommended for diagnosis of either severe or non-severe malnutrition. Intervention/Recommendation Comments 1. Continue with regular diet as ordered. 2. Monitor PO intake, wt, labs and skin integrity 3. F/U as low risk in 7 days, 04/19 Expected Outcomes/Goals Expected Outcomes/Goals 1. PO intake to meet at least 75% of nutritional needs. 2. Wt stability, skin to remain intact, labs to approach WNL. Reviewed by Shala Ray RD
[2018-04-13] MEDS: POLYETHYLENE GLYCOL 3350 17 GM PACK PO SCH ×2 (09:41→18:53)
--- NOTE | 2018-04-13 16:10 | Internal Medicine Prog Note ---
Internal Medicine Subjective - Subjective Service Date: 04/13/18 Patient is:: awake, confused Per staff patient has:: tolerating meds Internal Medicine Objective - Results Recent Labs: Laboratory Last Values POC Glucose 112 MG/DL (70 - 105) H 04/09/18 19:22 Triglycerides 108 mg/dL (<150) 04/10/18 11:47 Cholesterol 160 mg/dL (<200) 04/10/18 11:47 LDL Cholesterol Direct 114 mg/dL (75-193) 04/10/18 11:47 HDL Cholesterol 35 mg/dL (23-92) 04/10/18 11:47 - Physical Exam Vitals and I&O: Vital Signs Temp 97.4 F 04/13/18 15:25 Pulse 92 04/13/18 15:25 Resp 20 04/13/18 15:25 BP 106/71 04/13/18 15:25 Pulse Ox 95 04/13/18 15:25 Intake & Output 04/12/18 04/13/18 04/13/18 18:59 06:59 18:59 Intake Total 1200 Balance 1200 Intake: Oral 1200 Other: # Bowel Movements 1 Stool Characteristics Soft Soft Soft Formed Formed Formed Active Medications: Current Medications Diazepam (Valium) 5 mg PO TID [facility]; Protocol Stop: 06/09/18 08:59 Last Admin: 04/13/18 14:02 Dose: 5 mg Docusate Sodium (Colace) 100 mg PO BID NITO Stop: 06/09/18 08:59 Last Admin: 04/13/18 09:41 Dose: 100 mg Lorazepam (Ativan) 0.5 mg PO Q4HR PRN; Protocol PRN Reason: Anxiety Stop: 05/09/18 15:59 Last Admin: 04/13/18 05:19 Dose: 0.5 mg Magnesium Hydroxide (Milk Of Magnesia) 30 ml PO HS PRN PRN Reason: Constipation Stop: 06/08/18 22:07 Mirtazapine (Remeron) 7.5 mg PO HS [facility]; Protocol Stop: 06/09/18 20:59 Last Admin: 04/12/18 20:17 Dose: 7.5 mg Ondansetron HCl (Zofran Odt) 4 mg PO Q6HR PRN PRN Reason: Nausea / Vomiting Stop: 06/08/18 22:07 Polyethylene Glycol (Miralax) 17 gm PO BID [facility] Stop: 06/09/18 08:59 Last Admin: 04/13/18 09:41 Dose: 17 gm Quetiapine Fumarate (Seroquel) 25 mg PO Q6H PRN; Protocol PRN Reason: Agitation Stop: 06/08/18 21:49 Last Admin: 04/13/18 05:19 Dose: 25 mg Quetiapine Fumarate (Seroquel) 50 mg PO BID NITO; Protocol Stop: 06/09/18 08:59 Last Admin: 04/13/18 09:41 Dose: 50 mg General: alert HEENT: NC/AT, PERRLA Neck: Supple Lungs: CTAB Cardiovascular: RRR, Normal S1, Normal S2, without murmur Abdomen: soft, non-tender, non-distended, positive bowel sound Neurological: alert Internal Medicine Assmt/Plan - Assessment Assessment: os psychosis - Plan Plan: fall precautions continue current plan of care Nutritional Asmnt/Malnutr-PDOC - Dietary Evaluation Malnutrition Findings (Please click <Entered> for more info): Nutritional Asmnt/Malnutrition Start: 04/12/18 11: 48 Text: Status: Complete Freq: Protocol: Document 04/12/18 11:49 DARSHANA (Rec: 04/12/18 11:59 DARSHANA [id number]) Nutritional Asmnt/Malnutrition Patient General Information Nutritional Screening Moderate Risk Diagnosis psychosis Pertinent Medical Hx/Surgical Hx degenerative psychosis Subjective Information Pt was seen sleeping in bed at time of visit. Per EMR, PO intake 100%. Current Diet Order/ Nutrition Support Regular Pertinent Medications colace, remeron, seroquel Pertinent Labs 04/09 POC 112 Nutritional Hx/Data Height 5 ft 4 in Height (Calculated Centimeters) 162.6 Current Weight (lbs) 112 lb Weight (Calculated Kilograms) 50.8 Weight (Calculated Grams) 30248.3 [place] Body Weight 120 Body Mass Index (BMI) 19.2 Weight Status Approriate GI Symptoms GI Symptoms None Last BM 04/11 Difficult in: None Skin Integrity/Comment: redness of skin Current %PO Good (75-100%) Estimated Nutritional Goals BEE in Kcals: Using Current wt Calories/Kcals/Kg 25-30 Kcals Calculated 2730-8910 Protein: Using Current wt Protein g/k.8-1 Protein Calculated 40-51 g Fluid: ml 8806-8100 (1 ml/kcal) Nutritional Problem No current Nutrition Prob Problem N/A Malnutrition Alert Is there a minimum of two criteria No selected? Query Text:Check all the applicable criteria. A minimum of two criteria are recommended for diagnosis of either severe or non-severe malnutrition. Intervention/Recommendation Comments 1. Continue with regular diet as ordered. 2. Monitor PO intake, wt, labs and skin integrity 3. F/U as low risk in 7 days, 04/19 Expected Outcomes/Goals Expected Outcomes/Goals 1. PO intake to meet at least 75% of nutritional needs. 2. Wt stability, skin to remain intact, labs to approach WNL. Reviewed by Shala Ray RD
[2018-04-14] MEDS: POLYETHYLENE GLYCOL 3350 17 GM PACK PO SCH ×2 (08:25→17:26)
--- NOTE | 2018-04-14 13:25 | Internal Medicine Prog Note ---
Internal Medicine Subjective - Subjective Service Date: 04/14/18 Patient is:: awake, confused Per staff patient has:: tolerating meds Internal Medicine Objective - Results Recent Labs: Laboratory Last Values POC Glucose 112 MG/DL (70 - 105) H 04/09/18 19:22 Triglycerides 108 mg/dL (<150) 04/10/18 11:47 Cholesterol 160 mg/dL (<200) 04/10/18 11:47 LDL Cholesterol Direct 114 mg/dL (75-193) 04/10/18 11:47 HDL Cholesterol 35 mg/dL (23-92) 04/10/18 11:47 - Physical Exam Vitals and I&O: Vital Signs Temp 97.4 F 04/14/18 06:36 Pulse 60 04/14/18 06:36 Resp 19 04/14/18 10:40 BP 108/62 04/14/18 06:36 Pulse Ox 100 04/14/18 06:36 Intake & Output 04/13/18 04/14/18 04/14/18 18:59 06:59 18:59 Other: # Voids 3 3 # Bowel Movements 0 Stool Characteristics Soft Soft Formed Formed Active Medications: Current Medications Diazepam (Valium) 5 mg PO TID [facility]; Protocol Stop: 06/09/18 08:59 Last Admin: 04/14/18 13:13 Dose: 5 mg Docusate Sodium (Colace) 100 mg PO BID NITO Stop: 06/09/18 08:59 Last Admin: 04/14/18 08:26 Dose: 100 mg Lorazepam (Ativan) 0.5 mg PO Q4HR PRN; Protocol PRN Reason: Anxiety Stop: 05/09/18 15:59 Last Admin: 04/14/18 13:13 Dose: 0.5 mg Magnesium Hydroxide (Milk Of Magnesia) 30 ml PO HS PRN PRN Reason: Constipation Stop: 06/08/18 22:07 Mirtazapine (Remeron) 7.5 mg PO HS [facility]IT[facility]; Protocol Stop: 06/09/18 20:59 Last Admin: 04/13/18 21:25 Dose: 7.5 mg Ondansetron HCl (Zofran Odt) 4 mg PO Q6HR PRN PRN Reason: Nausea / Vomiting Stop: 06/08/18 22:07 Polyethylene Glycol (Miralax) 17 gm PO BID NITO Stop: 06/09/18 08:59 Last Admin: 04/14/18 08:25 Dose: 17 gm Quetiapine Fumarate (Seroquel) 25 mg PO Q6H PRN; Protocol PRN Reason: Agitation Stop: 06/08/18 21:49 Last Admin: 04/13/18 05:19 Dose: 25 mg Quetiapine Fumarate (Seroquel) 50 mg PO BID NITO; Protocol Stop: 06/09/18 08:59 Last Admin: 04/14/18 08:26 Dose: 50 mg General: alert HEENT: NC/AT, PERRLA Neck: Supple Lungs: CTAB Cardiovascular: RRR, Normal S1, Normal S2, without murmur Abdomen: soft, non-tender, non-distended, positive bowel sound Neurological: alert Internal Medicine Assmt/Plan - Assessment Assessment: os psychosis - Plan Plan: fall precautions continue current plan of care Nutritional Asmnt/Malnutr-PDOC - Dietary Evaluation Malnutrition Findings (Please click <Entered> for more info): Nutritional Asmnt/Malnutrition Start: 04/12/18 11: 48 Text: Status: Complete Freq: Protocol: Document 04/12/18 11:49 DARSHANA (Rec: 04/12/18 11:59 DARSHANA [id number]) Nutritional Asmnt/Malnutrition Patient General Information Nutritional Screening Moderate Risk Diagnosis psychosis Pertinent Medical Hx/Surgical Hx degenerative psychosis Subjective Information Pt was seen sleeping in bed at time of visit. Per EMR, PO intake 100%. Current Diet Order/ Nutrition Support Regular Pertinent Medications colace, remeron, seroquel Pertinent Labs 04/09 POC 112 Nutritional Hx/Data Height 5 ft 4 in Height (Calculated Centimeters) 162.6 Current Weight (lbs) 112 lb Weight (Calculated Kilograms) 50.8 Weight (Calculated Grams) 44016.3 [place] Body Weight 120 Body Mass Index (BMI) 19.2 Weight Status Approriate GI Symptoms GI Symptoms None Last BM 04/11 Difficult in: None Skin Integrity/Comment: redness of skin Current %PO Good (75-100%) Estimated Nutritional Goals BEE in Kcals: Using Current wt Calories/Kcals/Kg 25-30 Kcals Calculated 6952-3378 Protein: Using Current wt Protein g/k.8-1 Protein Calculated 40-51 g Fluid: ml 8943-7175 (1 ml/kcal) Nutritional Problem No current Nutrition Prob Problem N/A Malnutrition Alert Is there a minimum of two criteria No selected? Query Text:Check all the applicable criteria. A minimum of two criteria are recommended for diagnosis of either severe or non-severe malnutrition. Intervention/Recommendation Comments 1. Continue with regular diet as ordered. 2. Monitor PO intake, wt, labs and skin integrity 3. F/U as low risk in 7 days, 04/19 Expected Outcomes/Goals Expected Outcomes/Goals 1. PO intake to meet at least 75% of nutritional needs. 2. Wt stability, skin to remain intact, labs to approach WNL. Reviewed by Shala Ray RD
--- NOTE | 2018-04-14 21:11 | Progress Notes ---
DATE: 04/12/2018 SUBJECTIVE: Chart reviewed and the patient interviewed. Also, discussed the patient's condition with the staff and reviewed her records and labs. The patient is still anxious and still has episodes of irritability, but no major behavior problems. She also still has periods of yelling and screaming, but less than before. The patient also is trying to interact more. She is also compliant with taking her medications with no side effects of medications. ASSESSMENT: The patient is still anxious and waiting for discharge. TREATMENT PLAN: [facility]. Hopefully, case managers will help to discharge the patient that day and had discharge order already since yesterday. At the same time, we will continue current medications and treatment. [facility]# [id number]
--- NOTE | 2018-04-14 21:32 | Progress Notes ---
DATE: 04/11/2018 DATE: 04/11/2018 SUBJECTIVE: Chart reviewed and the patient interviewed. Also discussed the patient's condition with the staff and reviewed records and labs. The patient still have episodes of irritability and anger, but seems to be slightly less than before. Also slightly easier to redirect her. The patient also is still feeling at times hopeless, but no major behavioral issues or changes, also fair appetite and fair sleep. ASSESSMENT: The patient is less agitated. [facility] PLAN[facility] Plan is to discharge the patient today and outpatient treatment and followup will continue there. JOB# [id number]
--- NOTE | 2018-04-14 21:52 | Progress Notes ---
DATE: 04/13/2018 SUBJECTIVE: Chart reviewed and the patient interviewed. Also discussed the patient's condition with the staff and reviewed records and labs. The patient still have episodes of yelling out, but less than before. The patient also easier to redirect her. She is also complaint to take Seroquel, Remeron, and Ativan with no side effects. The patient was supposed to be discharged yesterday to [facility], but it seems that staff were busy to discharge the patient and when I talked to the charge nurse yesterday evening about 5, he said that he is unable to discharge the patient because of being overwhelmed with other work. Although, I explained to him that the psych social worker called me telling me that the patient was accepted back to [facility] and also I put the order. Yet, they did not discharge her. The patient is still in the hospital. ASSESSMENT: The patient still has episodes of agitation, but less and ready for discharge. TREATMENT PLAN: We will continue to work on discharging the patient and monitoring her behavior. JOB# [id number]
--- NOTE | 2018-04-14 22:19 | Progress Notes ---
DATE: Chart reviewed and the patient interviewed. Also discussed the patient's condition with the staff and reviewed records and labs. The patient is still have episodes of feeling hopeless than before. The patient also is restless and still have episodes of agitation, but less than before. The patient also is interacting more with others. Otherwise, the patient is compliant with taking her medications with no side effect of medications. ASSESSMENT: The patient seems to be less agitated and less psychotic. TREATMENT PLAN: Waiting for discharge to [facility] tomorrow since the patient was not able to be discharged in the last few days for unknown reason. At the same time, we will continue to work on her irritability and will continue to follow up. JOB# [id number]
[2018-04-15] MEDS: POLYETHYLENE GLYCOL 3350 17 GM PACK PO SCH ×2 (09:18→17:17)
--- NOTE | 2018-04-15 12:40 | Discharge Summary ---
DATE OF DISCHARGE: 04/15/2018 PSYCHIATRIC DISCHARGE SUMMARY PATIENT'S AGE: 62-year-old SEX: Female. PHYSICIAN: Dr. Cottrell. FINAL DIAGNOSIS: PRIMARY DIAGNOSIS: Schizoaffective disorder, mixed type, severe, with psychotic features. REASON FOR HOSPITALIZATION: The patient was transferred from [facility] to [facility] because of agitation, yelling and banging basurto and out of control behavior. HOSPITAL COURSE: The patient continued to be agitated and in irritable mood. The patient also continued to have yelling and screaming episodes. The patient continued to take Seroquel and Remeron. Gradually, the patient's affect was brighter. The patient was less irritable and less agitated. The patient was discharged to [facility]. PHYSICAL EXAMINATION: The patient was monitored closely. The patient had no major medical problems while in the hospital. AFTER DISCHARGE PLANS: The patient discharged from the hospital to [facility] with plans to follow her up there. EXPECTED OUTCOME AFTER DISCHARGE: Fair if the patient continues with her outpatient treatment and follow up with discharge plans. [facility]# [id number]
--- NOTE | 2018-04-15 23:10 | Progress Notes ---
DATE: 04/15/2018 Case was discussed with staff of the patient, reviewed records. The patient continues to be mostly nonverbal. Continues to be restless, easily agitated, continues to have poor interaction. She is compliant with the medication with no side effects, no sedation, no nausea, no extrapyramidal symptoms. She is on Remeron 7.5 mg at bedtime, Seroquel 25 mg q.6 hours as needed and 50 mg twice a day with no side effects, no sedation, no nausea, no extrapyramidal symptoms. We will continue to work with the patient in group therapy, milieu therapy, adjust medication as needed. JOB# [id number]
== END 2018-04-15 15:00 | DRG 885 ==
LOC: GERO 17:38
PROVIDERS: ADMIT Psychiatry & Neurology Psychiatry; ATTEND Psychiatry & Neurology Psychiatry
DX: F25.0 Schizoaffective disorder, bipolar type (principal); F29 Unspecified psychosis not due to a substance or known physiological condition; F41.9 Anxiety disorder, unspecified; Z79.899 Other long term (current) drug therapy; Z88.0 Allergy status to penicillin
CPT/HCPCS: 36415-UA; 80061-TC; 82948-90; 83036-90; Z7610